=== PATIENT | male | born 1990 | race Caucasian/White ===

== ENCOUNTER 2017-07-31 15:24 | Inpatient (IN) | payer OTHER ==
[2017-07-31 17:04] LABS: Hematocrit 44 % (42-52); Mean Corpuscular HGB Conc 34 g/dl (31-36); Mean Corpuscular Hemoglobin 32 pg (27-31); Mean Corpuscular Volume 96 fL (80-94); Mean Platelet Volume 8 um3 (7.4-10.4); Red Blood Count 4.64 10^6/ul (4.0-5.4); Red Cell Distribution Width 14 % (10.5-15); White Blood Count 7.4 10^3/ul (3.5-10.8)
[2017-07-31 17:18] LABS: ALT 11 U/L (7-52); AST 15 U/L (13-39); Albumin 4.4 g/dL (3.2-5.2); Alkaline Phosphatase 53 U/L (34-104); Anion Gap 3 mmol/L (2-11); Blood Urea Nitrogen 9 mg/dL (6-24); CO2 Carbon Dioxide 33 mmol/L (22-32); Calcium 9.3 mg/dL (8.6-10.3); Chloride 103 mmol/L (101-111); EGFR African American 142.9 (>60); EGFR Non-African American 111.1 (>60); Globulin 2.3 g/dL (2-4); Glucose 79 mg/dL (70-100); Potassium 3.9 mmol/L (3.5-5.0); Sodium 139 mmol/L (133-145); Total Protein 6.7 g/dL (6.4-8.9)
[2017-07-31 17:49] LABS: Acetaminophen < 15 mcg/mL; Alcohol < 10 mg/dL (<10); Salicylate < 2.50 mg/dL (<30)
[2017-07-31 18:04] LABS: TSH (Thyroid Stimulating Horm) 2.27 mcIU/mL (0.34-5.60)
[2017-08-01] MEDS ORDERED: Al Hydrox/Mg Hydrox/Simet LIQ* 30 ML UDC PO PRN (01:12)
[2017-08-01] MEDS ORDERED: Acetaminophen TAB* 325 MG PO PRN (01:12)
[2017-08-01] MEDS ORDERED: chlorproMAZINE TAB* 50 MG PO PRN (01:12)
[2017-08-01] MEDS ORDERED: EPINEPHrine PEN ADULT(NF) 0.3 MG SYRINGE IM PRN (03:15)
[2017-08-01] MEDS: ValACYclovir (*) 1 GM TAB PO SCH (07:58)
[2017-08-01] MEDS: Vitamin THERAPEUTIC TAB PO SCH (07:58)
--- NOTE | 2017-08-01 08:47 | ED ---
Stuart Hernandez Angela, scribed for Dangelo Astudillo MD on 07/31/17 at 1717 . Psychiatric Complaint - HPI Summary HPI Summary: This pt is a 27 y/o male presenting to [facility] c/o intermittent paranoia since this past summer. Pt reports that his partner and psychiatrist (Nikki Goss) have recommended him to come to the ED. Pt denies SI or HI. There are no aggravating or alleviating factors. PMHx of paranoia, anxiety, depression. - History Of Current Complaint Chief Complaint: EDMentalHealth Time Seen by Provider: 07/31/17 16:25 Hx Obtained From: Patient Onset/Duration: Lasting Weeks, Still Present Timing: Weeks Character: Depressed, Anxious Aggravating Factor(s): Nothing Alleviating Factor(s): Nothing Has Suicidal: Denies: Thoughts, With A Plan Has Homicidal: Denies: Thoughts, With A Plan - Allergies/Home Medications Allergies/Adverse Reactions: Allergies Allergy/AdvReac Type Severity Reaction Status Date / Time Amoxicillin Allergy Hives Verified 07/31/17 15:34 Banana Allergy Unknown Verified 07/31/17 15:34 Reaction Details Marlborough Oil [From Marlborough] Allergy Unknown Verified 07/31/17 15:34 Reaction Details Diphenhydramine Allergy Altered Verified 07/31/17 15:34 [From Benadryl] Mental Status Hydroxyzine Allergy Altered Verified 07/31/17 15:34 Mental Status Kiwi Extract Allergy Unknown Verified 07/31/17 15:34 Reaction Details Latex Allergy Unknown Verified 07/31/17 15:34 Reaction Details Wheat Extract Allergy Unknown Verified 07/31/17 15:34 Reaction Details PMH/Surg Hx/FS Hx/Imm Hx Endocrine/Hematology History: Denies: Hx Diabetes Cardiovascular History: Denies: Hx Hypertension Psychiatric History: Reports: Hx Anxiety, Hx Depression, Other Psychiatric Issues/Disorders - paranoia Infectious Disease History: No Infectious Disease History: Denies: Traveled Outside the [place] in Last 30 Days - Family History Known Family History: Negative: Cardiac Disease, Hypertension - Social History Alcohol Use: Rare Substance Use Type: Reports: None Smoking Status (MU): Never Smoked Tobacco Review of Systems Negative: Fever, Chills Eyes: Negative ENT: Negative Cardiovascular: Negative Respiratory: Negative Gastrointestinal: Negative Psychological: Other - paranoia Positive: Anxious, Depressed. Negative: Other - SI or HI All Other Systems Reviewed And Are Negative: Yes Physical Exam - Summary Physical Exam Summary: VITAL SIGNS: Reviewed. GENERAL: Patient is a well-developed and nourished male who is lying comfortable in the stretcher. Patient is not in any acute respiratory distress. HEAD AND FACE: No signs of trauma. No ecchymosis, hematomas or skull depressions. No sinus tenderness. EYES: PERRLA, EOMI x 2, No injected conjunctiva, no nystagmus. EARS: Hearing grossly intact. Ear canals and tympanic membranes are within normal limits. MOUTH: Oropharynx within normal limits. NECK: Supple, trachea is midline, no adenopathy, no JVD, no carotid bruit, no c- spine tenderness, neck with full ROM. CHEST: Symmetric, no tenderness at palpation LUNGS: Clear to auscultation bilaterally. No wheezing or crackles. CVS: Regular rate and rhythm, S1 and S2 present, no murmurs or gallops appreciated. ABDOMEN: Soft, non-tender. No signs of distention. No rebound no guarding, and no masses palpated. Bowel sounds are normal. EXTREMITIES: FROM in all major joints, no edema, no cyanosis or clubbing. NEURO: Alert and oriented x 3. No acute neurological deficits. Speech is normal and follows commands. SKIN: Dry and warm PSYCH: Depressed, quiet, and denies any suicidal thoughts or plan. No homicidal thoughts or plan. No signs of psychosis or pressure speech. No tangential speech. Triage Information Reviewed: Yes Vital Signs On Initial Exam: Initial Vitals Temp Pulse Resp BP Pulse Ox 98 F 67 18 109/69 100 07/31/17 15:30 07/31/17 15:30 07/31/17 15:30 07/31/17 15:30 07/31/17 15:30 Vital Signs Reviewed: Yes - Rossy Coma Scale Coma Scale Total: 15 Diagnostics - Vital Signs Vital Signs Temp Pulse Resp BP Pulse Ox 07/31/17 15:30 98 F 67 18 109/69 100 - Laboratory Lab Results: Lab Results 07/31/17 Range/Units 16:52 WBC 7.4 (3.5-10.8) 10^3/ul RBC 4.64 (4.0-5.4) 10^6/ul Hgb 15.0 (14.0-18.0) g/dl Hct 44 (42-52) % MCV 96 H (80-94) fL MCH 32 H (27-31) pg MCHC 34 (31-36) g/dl RDW 14 (10.5-15) % Plt Count 240 (150-450) 10^3/ul MPV 8 (7.4-10.4) um3 Neut % (Auto) 67.2 (38-83) % Lymph % (Auto) 22.9 L (25-47) % [place] % (Auto) 7.7 (1-9) % Eos % (Auto) 1.7 (0-6) % Baso % (Auto) 0.5 (0-2) % Absolute Neuts (auto) 5.0 (1.5-7.7) 10^3/ul Absolute Lymphs (auto) 1.7 (1.0-4.8) 10^3/ul Absolute Monos (auto) 0.6 (0-0.8) 10^3/ul Absolute Eos (auto) 0.1 (0-0.6) 10^3/ul Absolute Basos (auto) 0 (0-0.2) 10^3/ul Absolute Nucleated RBC 0 10^3/ul Nucleated RBC % 0 Result Diagrams: 07/31/17 16:52 07/31/17 16:52 Lab Statement: Any lab studies that have been ordered have been reviewed, and results considered in the medical decision making process. Course/Dx - Course Assessment/Plan: This pt is a 27 y/o male presenting to [facility] c/o intermittent paranoia since this past summer. Pt reports that his partner and psychiatrist ( Nikki Goss) have recommended him to come to the ED. Pt denies SI or HI. There are no aggravating or alleviating factors. PMHx of paranoia, anxiety, depression. All blood work within normal limits. Pt is medically cleared. He is waiting for MHE. Pt will be signed out to next ER attending to follow up on MHE recommendations. - Differential Dx/Clinical Impression Provider Diagnosis: Paranoia Discharge - Discharge Plan Condition: Stable Disposition: OTHER Discharge Disposition Comment: signed out to next ER attending, pending dispo, awaiting MHE. Referrals: No Primary Care Phys,NOPCP [Primary Care Provider] - The documentation as recorded by the Stuart watkins Angela accurately reflects the service I personally performed and the decisions made by me, Dangelo Astudillo MD.
--- NOTE | 2017-08-01 10:07 | RAD ---
Indication: Paranoia, evaluate for organic brain disease. CT of the brain was performed without IV contrast. No prior study is available for comparison. Ventricular structures are midline. No midline shift is noted. The extra-axial spaces are unremarkable. There is no evidence of intracranial mass or hemorrhage. No other high or low density lesions are identified. Mastoid air cells and paranasal sinuses are otherwise unremarkable. IMPRESSION: No intracranial mass or hemorrhage is noted.
[2017-08-01] MEDS ORDERED: EPINEPHrine AMP 1 MG/ML IM PRN ×2 (11:15→12:32)
--- NOTE | 2017-08-01 11:39 | PN ---
[facility]: Group Therapy Note - Service Type Service Type: [id number] Group Psychotherapy - Cognitive Behavioral Group Therapy ( CBT):Patient was attentive and participatory in CBT programming this morning, and remained in good behavioral control. Patient expressed positive insights regarding relevant treatment interventions and goals.
[2017-08-01] MEDS: LORazepam TAB(*) 1 MG PO PRN ×2 (13:04→21:16)
[2017-08-01] MEDS: FLUoxetine CAP* 20 MG PO SCH (16:21)
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
[2017-08-01] MEDS: clonazePAM TAB(*) 0.5 MG PO SCH (20:47)
[2017-08-02] MEDS: Vitamin THERAPEUTIC TAB PO SCH ×2 (08:33→08:34)
[2017-08-02] MEDS: clonazePAM TAB(*) 0.5 MG PO SCH ×2 (08:33→20:16)
[2017-08-02] MEDS: FLUoxetine CAP* 20 MG PO SCH (08:33)
[2017-08-02] MEDS: ValACYclovir (*) 1 GM TAB PO SCH (08:35)
[2017-08-02 10:24] LABS: Urine Bacteria Absent (Absent); Urine Bilirubin Negative (Negative); Urine Glucose Negative (Negative); Urine Nitrite Negative (Negative)
[2017-08-02 10:31] LABS: Benzodiazepine Urine Screen None Detected (None Detect)
[2017-08-02] MEDS: LORazepam TAB(*) 1 MG PO PRN (12:06)
--- NOTE | 2017-08-02 12:58 | PN ---
Subjective - Subjective Service Type: 07921 Hosp care 15 min low complexity Subjective: Patient less paranoid and no overt delusions noted. Seems to have better perspective on his issues. "Yesterday I saw a book in on the shelf in the day area that said [employer]. 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 Today I think about that situation and I see that that's not true at all." The patient notes that his affect worsens anytime his partner arrives on the unit for a visit. He continues to deny SI or HI and expresses his desire to go home, but he is OK waiting until Sunday. When questioned about the abnormal urinalysis results he does indicate that he' s had mild urinary discomfort indicative of UTI. Objective - Appearance Appearance: Well Developed/Nourished Dysmorphic Features: No Hygiene: Normal Grooming: Well Kept - Behavior Psychomotor Activities: Normal Exhibits Abnormal Movement: No - Attitude and Relatedness Attitude and Relatedness: Cooperative Eye Contact: Good - Speech Quality: Unpressured Latencies: Normal Quantity: Appropriate - Mood Patient's Decription of Mood: "Good" - Affect Observed Affect: Good Affect Consistent with: Euthymia - Thought Process Patient's Thought Process: Coherent Thought Content: No Passive Wish, No Suicidal Planning, No Homicidal Ideation, No Paranoid Ideation - Sensorium Experiencing Hallucinations: No, Sensorium is Clear Type of Hallucinations: Visual: No, Auditory: No, Command: No - Level of Consciousness Level of Consciousness: Alert Orientation: Yes Intact, Yes Orientated to Time, Yes Orientated to Place, Yes Orientated to Person - Impulse Control Impulse Control: Tenuous - Insight and Judgement Insight and Judgement: Fair - Group Participation Particating in Group Activities: Yes - Medication Management Medication Management Adherence: Yes Assessment - Assessment Merits Inpatient Hospitalization: For Immediate Safety, For Stabilization 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 single, white, unemployed [id number] transgender with a history of numerous psychiatric disorders including PTSD, autism spectrum DO, OCD, ADHD and dysthymia, who arrived on a voluntary basis having been brought by his partner from his outpatient psychiatric nurse practitioner's office where he had complained of psychotic symptoms and inability to maintain his own safety in the community. Plan - Plan Treatment Plan: Name: BRANDON SANCHEZ Birthdate: 1990 [id number] We have added quetiapine 50mg PO qhs to his outpatient regimen of fluoxatine 60mg PO qday and clonazepam 0.5mg PO BID. Family meeting with partner on Sunday , August 02, followed by probably discharge to home. Continued Medication Management: Start Medication Medications: Current Medications Acetaminophen (Tylenol Tab*) 650 mg PO Q4H PRN PRN Reason: PAIN or TEMP > 101 F Al Hydrox/Mg Hydrox/Simethicone (Maalox Plus*) 30 ml PO Q4H PRN PRN Reason: INDIGESTION Chlorpromazine HCl (Thorazine Tab*) 50 mg PO Q6H PRN PRN Reason: AGITATION Ciprofloxacin (Cipro Tab*) 500 mg PO BID [facility] Clonazepam (Klonopin Tab(*)) 0.5 mg PO BID [facility] Last Admin: 08/02/17 08:33 Dose: 0.5 mg Epinephrine HCl (Epinephrine Amp 1 Mg/Ml*) 0.3 mg IM ONCE PRN PRN Reason: ANAPHYLAXIS Fluoxetine HCl (Prozac Cap*) 60 mg PO DAILY [facility] Last Admin: 08/02/17 08:33 Dose: 60 mg Lorazepam (Ativan Tab(*)) 1 mg PO TID PRN PRN Reason: ANXIETY Last Admin: 08/02/17 12:06 Dose: 1 mg Multivitamins (Theragran Tab*) 1 tab PO DAILY [facility] Last Admin: 08/02/17 08:34 Dose: Not Given Quetiapine Fumarate (Seroquel Tab*) 50 mg PO BEDTIME [facility] Valacyclovir HCl (Valtrex 1 Gm(*)) 1 gm PO DAILY [facility] Last Admin: 08/02/17 08:35 Dose: 1 gm - Discharge Plan Discharge Plan: Inpatient Hospitalization Lab Results - Lab Results Lab Results: 08/02/17 08/02/17 10:00 10:00 Urine Color Yellow Urine Appearance Cloudy Urine pH 6.0 Ur Specific [place] 1.015 Urine Protein Negative Urine Ketones Negative Urine Blood Negative Urine Nitrate Negative Urine Bilirubin Negative Urine Urobilinogen Negative Ur Leukocyte Esterase 3+ H Urine WBC (Auto) 2+(11-20/hpf) H Urine RBC (Auto) 1+(3-5/hpf) H Ur Squamous Epith Cells Present H Urine Bacteria Absent Hyaline Casts Present H Urine Glucose Negative Urine Ascorbic Acid * H Urine Opiates Screen None detected Ur Barbiturates Screen None detected Ur Phencyclidine Scrn None detected Ur Amphetamines Screen None detected U Benzodiazepines Scrn None detected Urine Cocaine Screen None detected U Cannabinoids Screen Presumptive positive H
[2017-08-02] MEDS: Nicotine Inhaler* 10 MG AMP INH PRN ×2 (13:49→16:46)
[2017-08-02] MEDS: Ciprofloxacin TAB* 500 MG PO SCH ×2 (13:49→20:15)
[2017-08-02] MEDS ORDERED: Mouth Piece, Nicotine* 1 EACH CARTRIDGE INH ONE (14:00)
[2017-08-02] MEDS: QUEtiapine TAB* 25 MG PO SCH (20:14)
[2017-08-03] MEDS: clonazePAM TAB(*) 0.5 MG PO SCH ×2 (09:03→20:21)
[2017-08-03] MEDS: ValACYclovir (*) 1 GM TAB PO SCH (09:03)
[2017-08-03] MEDS: Ciprofloxacin TAB* 500 MG PO SCH ×2 (09:03→20:21)
[2017-08-03] MEDS: FLUoxetine CAP* 20 MG PO SCH (09:04)
[2017-08-03] MEDS: Vitamin THERAPEUTIC TAB PO SCH (09:19)
[2017-08-03] MEDS: Nicotine Inhaler* 10 MG AMP INH PRN (13:48)
[2017-08-03] MEDS: LORazepam TAB(*) 1 MG PO PRN ×2 (13:48→18:26)
--- NOTE | 2017-08-03 14:50 | PN ---
Subjective - Subjective Subjective: Yon reports continuing improvement in presenting symptoms. He is no longer appearing delusional and he is able to state that his fears the government was monitoring his phone, Nazis were coming, and mandaeism preoccupations were not reality-based. He denies side effects from prescribed medication including newly started Seroquel. HE looks forward to family meeting/discharge on Sunday. Objective - Appearance Appearance: Healthy Appearing Dysmorphic Features: No Hygiene: Normal Grooming: Well Kept - Behavior Psychomotor Activities: Normal Exhibits Abnormal Movement: No - Attitude and Relatedness Attitude and Relatedness: Cooperative Eye Contact: Fair - Speech Quality: Unpressured Latencies: Normal Quantity: Appropriate - Mood Patient's Decription of Mood: better - Affect Observed Affect: Fair Affect Consistent with: Euthymia - Thought Process Patient's Thought Process: Coherent, Goal Directed Thought Content: No Passive Wish, No Suicidal Planning, No Homicidal Ideation, No Paranoid Ideation - Sensorium Experiencing Hallucinations: No, Sensorium is Clear - Level of Consciousness Level of Consciousness: Alert Orientation: Yes Intact - Impulse Control Impulse Control: Intact - Insight and Judgement Insight and Judgement: Fair - Group Participation Particating in Group Activities: Yes - Medication Management Medication Management Adherence: Yes Assessment - Assessment Merits Inpatient Hospitalization: Consolidate Improvements, For Discharge Planning 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 He needs continued admission for consolidation. Plan - Plan Treatment Plan: Name: BRANDON SANCHEZ Birthdate: 1990 [id number] Continued Medication Management: Continue Outpt Medication Medications: Current Medications Acetaminophen (Tylenol Tab*) 650 mg PO Q4H PRN PRN Reason: PAIN or TEMP > 101 F Al Hydrox/Mg Hydrox/Simethicone (Maalox Plus*) 30 ml PO Q4H PRN PRN Reason: INDIGESTION Chlorpromazine HCl (Thorazine Tab*) 50 mg PO Q6H PRN PRN Reason: AGITATION Ciprofloxacin (Cipro Tab*) 500 mg PO BID COUNTS INCLUDE 234 BEDS AT THE [facility] Last Admin: 08/03/17 09:03 Dose: 500 mg Clonazepam (Klonopin Tab(*)) 0.5 mg PO BID COUNTS INCLUDE 234 BEDS AT THE [facility] Last Admin: 08/03/17 09:03 Dose: 0.5 mg Epinephrine HCl (Epinephrine Amp 1 Mg/Ml*) 0.3 mg IM ONCE PRN PRN Reason: ANAPHYLAXIS Fluoxetine HCl (Prozac Cap*) 60 mg PO DAILY COUNTS INCLUDE 234 BEDS AT THE [facility] Last Admin: 08/03/17 09:04 Dose: 60 mg Lorazepam (Ativan Tab(*)) 1 mg PO TID PRN PRN Reason: ANXIETY Last Admin: 08/03/17 13:48 Dose: 1 mg Multivitamins (Theragran Tab*) 1 tab PO DAILY COUNTS INCLUDE 234 BEDS AT THE [facility] Last Admin: 08/03/17 09:19 Dose: Not Given Nicotine (Nicotine Inhaler*) 10 mg INH Q2H PRN PRN Reason: CRAVINGS Last Admin: 08/03/17 13:48 Dose: 10 mg Quetiapine Fumarate (Seroquel Tab*) 50 mg PO BEDTIME COUNTS INCLUDE 234 BEDS AT THE [facility] Last Admin: 08/02/17 20:14 Dose: 50 mg Valacyclovir HCl (Valtrex 1 Gm(*)) 1 gm PO DAILY COUNTS INCLUDE 234 BEDS AT THE [facility] Last Admin: 08/03/17 09:03 Dose: 1 gm - Discharge Plan Discharge Plan: Outpatient Follow Up Outpatient Program: [facility]
[2017-08-03] MEDS: QUEtiapine TAB* 25 MG PO SCH (20:20)
[2017-08-04] MEDS: Vitamin THERAPEUTIC TAB PO SCH ×2 (08:07→08:08)
[2017-08-04] MEDS: Ciprofloxacin TAB* 500 MG PO SCH ×2 (08:07→20:20)
[2017-08-04] MEDS: clonazePAM TAB(*) 0.5 MG PO SCH ×2 (08:07→20:20)
[2017-08-04] MEDS: FLUoxetine CAP* 20 MG PO SCH (08:07)
[2017-08-04] MEDS: ValACYclovir (*) 1 GM TAB PO SCH (08:07)
[2017-08-04 08:23] LABS: HDL Cholesterol 47.5 mg/dL
[2017-08-04] MEDS: LORazepam TAB(*) 1 MG PO PRN (11:17)
[2017-08-04] MEDS ORDERED: Mouth Piece, Nicotine* 1 EACH CARTRIDGE ONE (11:24)
[2017-08-04] MEDS: Nicotine Inhaler* 10 MG AMP INH PRN ×3 (11:25→17:20)
--- NOTE | 2017-08-04 14:09 | PN ---
Subjective - Subjective Service Type: 25908 Hosp care 15 min low complexity Subjective: The patient is in good spirits and feels like the quetiapine is tolerable with no side effects. He denies paranoia or overt anxiety, although he admits that certain peers on the unit make him very uncomfortable. I spoke with his partner , Alek Spears ([phone]), who expressed that today's visit was the best Tod has seemed to him, but he's concerned that perhaps the prn lorazepam is what's stabilizing him, setting him up for setbacks if he goes home without this medication. Tod denies SI or HI and has been very interactive on the unit. Objective - Appearance Appearance: Well Developed/Nourished Dysmorphic Features: No Hygiene: Normal Grooming: Fairly Well Kept - Behavior Psychomotor Activities: Normal Exhibits Abnormal Movement: No - Attitude and Relatedness Attitude and Relatedness: Cooperative Eye Contact: Fair - Speech Quality: Unpressured Latencies: Normal Quantity: Appropriate - Mood Patient's Decription of Mood: "Good" - Affect Observed Affect: Good Affect Consistent with: Euthymia - Thought Process Patient's Thought Process: Coherent Thought Content: No Passive Wish, No Suicidal Planning, No Homicidal Ideation, No Paranoid Ideation - Sensorium Experiencing Hallucinations: No, Sensorium is Clear Type of Hallucinations: Visual: No, Auditory: No, Command: No - Level of Consciousness Level of Consciousness: Alert Orientation: Yes Intact, Yes Orientated to Time, Yes Orientated to Place, Yes Orientated to Person - Impulse Control Impulse Control: Poor - Insight and Judgement Insight and Judgement: Impaired - Group Participation Particating in Group Activities: Yes - Medication Management Medication Management Adherence: Yes Assessment - Assessment Merits Inpatient Hospitalization: Consolidate Improvements, Pending Safe DC Plan 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 single, white, unemployed [id number] transgender with a history of numerous psychiatric disorders including PTSD, autism spectrum DO, OCD, ADHD and dysthymia, who arrived on a voluntary basis having been brought by his partner from his outpatient psychiatric nurse practitioner's office where he had complained of psychotic symptoms and inability to maintain his own safety in the community. Plan - Plan Treatment Plan: Name: TOD SANCHEZ Birthdate: 1990 [id number] We have added quetiapine 50mg PO qhs to his outpatient regimen of fluoxatine 60mg PO qday and clonazepam 0.5mg PO BID. We will decrease lorazepam to 0.5mg q6h as prn for anxiety in advance of discontinuing this. Family meeting with partner on August 02 at 11:00, followed by probably discharge to home. Continued Medication Management: Start Medication Medications: Current Medications Acetaminophen (Tylenol Tab*) 650 mg PO Q4H PRN PRN Reason: PAIN or TEMP > 101 F Al Hydrox/Mg Hydrox/Simethicone (Maalox Plus*) 30 ml PO Q4H PRN PRN Reason: INDIGESTION Chlorpromazine HCl (Thorazine Tab*) 50 mg PO Q6H PRN PRN Reason: AGITATION Ciprofloxacin (Cipro Tab*) 500 mg PO BID [facility] Last Admin: 08/04/17 08:07 Dose: 500 mg Clonazepam (Klonopin Tab(*)) 0.5 mg PO BID [facility] Last Admin: 08/04/17 08:07 Dose: 0.5 mg Epinephrine HCl (Epinephrine Amp 1 Mg/Ml*) 0.3 mg IM ONCE PRN PRN Reason: ANAPHYLAXIS Fluoxetine HCl (Prozac Cap*) 60 mg PO DAILY [facility] Last Admin: 08/04/17 08:07 Dose: 60 mg Lorazepam (Ativan Tab(*)) 0.5 mg PO TID PRN PRN Reason: ANXIETY Multivitamins (Theragran Tab*) 1 tab PO DAILY [facility] Last Admin: 08/04/17 08:08 Dose: Not Given Nicotine (Nicotine Inhaler*) 10 mg INH Q2H PRN PRN Reason: CRAVINGS Last Admin: 08/04/17 13:38 Dose: 10 mg Quetiapine Fumarate (Seroquel Tab*) 50 mg PO BEDTIME [facility] Last Admin: 08/03/17 20:20 Dose: 50 mg Valacyclovir HCl (Valtrex 1 Gm(*)) 1 gm PO DAILY [facility] Last Admin: 08/04/17 08:07 Dose: 1 gm - Discharge Plan Discharge Plan: Outpatient Follow Up Outpatient Program: Private Clinician(s) Lab Results - Lab Results Lab Results: 08/02/17 08/02/17 08/04/17 10:00 10:00 07:49 Hemoglobin A1c Triglycerides 74 Cholesterol 187 LDL Cholesterol 125 HDL Cholesterol 47.5 Urine Color Yellow Urine Appearance Cloudy Urine pH 6.0 Ur Specific [place] 1.015 Urine Protein Negative Urine Ketones Negative Urine Blood Negative Urine Nitrate Negative Urine Bilirubin Negative Urine Urobilinogen Negative Ur Leukocyte Esterase 3+ H Urine WBC (Auto) 2+(11-20/hpf) H Urine RBC (Auto) 1+(3-5/hpf) H Ur Squamous Epith Cells Present H Urine Bacteria Absent Hyaline Casts Present H Urine Glucose Negative Urine Ascorbic Acid * H Urine Opiates Screen None detected Ur Barbiturates Screen None detected Ur Phencyclidine Scrn None detected Ur Amphetamines Screen None detected U Benzodiazepines Scrn None detected Urine Cocaine Screen None detected U Cannabinoids Screen Presumptive positive H 08/04/17 07:49 Hemoglobin A1c 4.5 Triglycerides Cholesterol LDL Cholesterol HDL Cholesterol Urine Color Urine Appearance Urine pH Ur Specific [place] Urine Protein Urine Ketones Urine Blood Urine Nitrate Urine Bilirubin Urine Urobilinogen Ur Leukocyte Esterase Urine WBC (Auto) Urine RBC (Auto) Ur Squamous Epith Cells Urine Bacteria Hyaline Casts Urine Glucose Urine Ascorbic Acid Urine Opiates Screen Ur Barbiturates Screen Ur Phencyclidine Scrn Ur Amphetamines Screen U Benzodiazepines Scrn Urine Cocaine Screen U Cannabinoids Screen
[2017-08-04] MEDS: LORazepam TAB(*) 0.5 MG PO PRN ×2 (15:35→20:58)
[2017-08-04] MEDS: QUEtiapine TAB* 25 MG PO SCH (20:19)
[2017-08-05] MEDS: ValACYclovir (*) 1 GM TAB PO SCH (09:05)
[2017-08-05] MEDS: clonazePAM TAB(*) 0.5 MG PO SCH ×2 (09:05→19:54)
[2017-08-05] MEDS: FLUoxetine CAP* 20 MG PO SCH (09:05)
[2017-08-05] MEDS: Ciprofloxacin TAB* 500 MG PO SCH ×2 (09:05→19:54)
[2017-08-05] MEDS: Vitamin THERAPEUTIC TAB PO SCH ×2 (09:05→09:16)
[2017-08-05] MEDS: Nicotine Inhaler* 10 MG AMP INH PRN ×2 (09:07→14:06)
[2017-08-05] MEDS: LORazepam TAB(*) 0.5 MG PO PRN (11:23)
--- NOTE | 2017-08-05 12:37 | PN ---
Progress Note - Progress Note Date of Service: 08/05/17 Note: I attempted to meet with Tod this afternoon to assess his mental status and also to examine his hand, which I understand he punctured while sitting in the day room last evening. Unfortunately, he refuses consent for the meeting, stating that he wants his partner present to function as his "advocate." Staff accounts describe his partner, Alek, as highly reactive and inappropriate during her visit last night and I understand that she is banned from the unit, pending administrative review from unit leadership tomorrow morning. My understanding is that Dr. Del Cid, the evening hospitalist, was contacted and did not feel that prophylactic antiviral treatment, or further workup, was warranted. For a second opinion I contacted current on-call hospitalist, Dr. Aparna Cox, who did not feel that the situation warranted a full consult but would send the nursing supervisor heading over to evaluate the situation. Additionally, I was able to talk to the patient's partner, Alek, on the phone and he denies acting inappropriately yesterday. He would like his visitation privileges resumed, however, staff indicates that his behavior was extremely disruptive to other patients on the unit and that his reappearance would be counter-therapeutic to the milieu. This clinician will discuss the matter tomorrow with the full treatment team, including unit administrative assistant coordinator, Smith Roman, to determine how best to proceed. Lab Results - Lab Results Lab Results: 08/04/17 08/04/17 07:49 07:49 Hemoglobin A1c 4.5 Triglycerides 74 Cholesterol 187 LDL Cholesterol 125 HDL Cholesterol 47.5
--- NOTE | 2017-08-05 13:24 | PN ---
Hospitalist Progress Note HOSPITALIST ADDENDUM Called by Dr. Sy for patient with alleged needle stick exposure last night while sitting on a chair. I requested Nursing supervisor microbiology technologists assistance on this issue. He reports security disassembled the aforementioned chair and did not find any needles. Patient is concerned with the possibility of kalpesh something despite no evidence of needle stick accident. D/w Nursing supervisor microbiology technologists - recommend checking serologies (HIV, Hep B and C) and providing post-exposure prophylaxis per protocol, until situation can be further clarified.
[2017-08-05] MEDS ORDERED: Tetanus-Diptheria Toxoids* 0.5 ML SYRINGE IM ONE (13:30)
[2017-08-05] MEDS: QUEtiapine TAB* 25 MG PO SCH (19:54)
[2017-08-05 21:09] LABS: Rapid HIV INT CONT QC Line Present
[2017-08-05 21:10] LABS: Rapid HIV Kit Lot# H046007
[2017-08-06] MEDS: Vitamin THERAPEUTIC TAB PO SCH (08:14)
[2017-08-06] MEDS: FLUoxetine CAP* 20 MG PO SCH (08:15)
[2017-08-06] MEDS: Ciprofloxacin TAB* 500 MG PO SCH (08:16)
[2017-08-06] MEDS: ValACYclovir (*) 1 GM TAB PO SCH (08:16)
[2017-08-06] MEDS: LORazepam TAB(*) 0.5 MG PO PRN (08:17)
[2017-08-06] MEDS: Nicotine Inhaler* 10 MG AMP INH PRN (08:20)
[2017-08-06 08:37] VITALS: BP 121/66
[2017-08-06] MEDS: clonazePAM TAB(*) 0.5 MG PO SCH (09:56)
--- NOTE | 2017-08-06 14:06 | DCNOTE ---
Subjective - Subjective Service Types: 88641 Hosp DC Day Mgmt complex over 30 min Discharge Date: 08/06/17 Subjective: Patient denies suicidality or paranoia. Partner, Alek Mtez, willing to take him home after productive family meeting today. Objective - Appearance Appearance: Well Developed/Nourished Dysmorphic Features: No Hygiene: Normal Grooming: Well Kept - Behavior Psychomotor Activities: Normal Exhibits Abnormal Movement: No - Attitude and Relatedness Attitude and Relatedness: Cooperative Eye Contact: Fair - Speech Quality: Unpressured Latencies: Normal Quantity: Appropriate - Mood Patient's Decription of Mood: "Good" - Affect Observed Affect: Good Affect Consistent with: Euthymia - Thought Process Patient's Thought Process: Coherent Thought Content: No Passive Wish, No Suicidal Planning, No Homicidal Ideation, No Paranoid Ideation - Sensorium Experiencing Hallucinations: No, Sensorium is Clear Type of Hallucinations: Visual: No, Auditory: No, Command: No - Level of Consciousness Level of Consciousness: Alert Orientation: Yes Intact, Yes Orientated to Time, Yes Orientated to Place, Yes Orientated to Person - Impulse Control Impulse Control: Intact - Insight and Judgement Insight and Judgement: Good - Group Participation Particating in Group Activities: Yes - Medication Management Medication Management Adherence: Yes DC Assessment - Assessment Clinical Impression: 27 y.o. single, white, unemployed [id number] transgender with a history of numerous psychiatric disorders including PTSD, autism spectrum DO, OCD, ADHD and dysthymia, who arrived on a voluntary basis having been brought by his partner from his outpatient psychiatric nurse practitioner's office where he had complained of psychotic symptoms and inability to maintain his own safety in the community. 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 Discharge Planning - Discharge Planning Discharge Plan: Outpatient Follow Up Outpatient Program: [facility] Medications: Current Medications Acetaminophen (Tylenol Tab*) 650 mg PO Q4H PRN PRN Reason: PAIN or TEMP > 101 F Al Hydrox/Mg Hydrox/Simethicone (Maalox Plus*) 30 ml PO Q4H PRN PRN Reason: INDIGESTION Chlorpromazine HCl (Thorazine Tab*) 50 mg PO Q6H PRN PRN Reason: AGITATION Ciprofloxacin (Cipro Tab*) 500 mg PO BID [facility] Last Admin: 08/06/17 08:16 Dose: 500 mg Clonazepam (Klonopin Tab(*)) 0.5 mg PO BID [facility] Last Admin: 08/06/17 09:56 Dose: 0.5 mg Epinephrine HCl (Epinephrine Amp 1 Mg/Ml*) 0.3 mg IM ONCE PRN PRN Reason: ANAPHYLAXIS Fluoxetine HCl (Prozac Cap*) 60 mg PO DAILY [facility] Last Admin: 08/06/17 08:15 Dose: 60 mg Lorazepam (Ativan Tab(*)) 0.5 mg PO TID PRN PRN Reason: ANXIETY Last Admin: 08/06/17 08:17 Dose: 0.5 mg Multivitamins (Theragran Tab*) 1 tab PO DAILY [facility] Last Admin: 08/06/17 08:14 Dose: Not Given Nicotine (Nicotine Inhaler*) 10 mg INH Q2H PRN PRN Reason: CRAVINGS Last Admin: 08/06/17 08:20 Dose: 10 mg Quetiapine Fumarate (Seroquel Tab*) 50 mg PO BEDTIME [facility] Last Admin: 08/05/17 19:54 Dose: 50 mg Valacyclovir HCl (Valtrex 1 Gm(*)) 1 gm PO DAILY [facility] Last Admin: 08/06/17 08:16 Dose: 1 gm Discharge Planning: Prescriptions provided for discharge [] Yes [] No Follow up care details as per social work arrangements. Patient response to discharge plan: [] eager for discharge [] agreeable with discharge plan [] ambivalent about discharge [] disagrees with discharge today Lab Results - Lab Results Lab Results: 08/04/17 08/04/17 08/05/17 07:49 07:49 07:49 Hemoglobin A1c 4.5 Triglycerides 74 Cholesterol 187 LDL Cholesterol 125 HDL Cholesterol 47.5 Hepatitis B Antibody Reactive Hep Bs Antigen Nonreactive Hep Bs Antibody, Quant 742.72 Hepatitis C Antibody Nonreactive HIV 1&2 Antibody Rapid Nonreactive
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
== END 2017-08-06 14:22 | disposition home or self-care (01) | DRG 751 ==
LOC: ED 15:24 → BSU 08-01 02:24
PROVIDERS: ADMIT Psychiatry & Neurology Psychiatry; ATTEND Psychiatry & Neurology Psychiatry
DX: F29 Unspecified psychosis not due to a substance or known physiological condition (principal); F33.3 Major depressive disorder, recurrent, severe with psychotic symptoms; N39.0 Urinary tract infection, site not specified; F19.959 Other psychoactive substance use, unspecified with psychoactive substance-induced psychotic disorder, unspecified; F12.10 Cannabis abuse, uncomplicated; B95.1 Streptococcus, group B, as the cause of diseases classified elsewhere; F17.210 Nicotine dependence, cigarettes, uncomplicated; F43.10 Post-traumatic stress disorder, unspecified; F84.0 Autistic disorder; F42.9 Obsessive-compulsive disorder, unspecified; F90.9 Attention-deficit hyperactivity disorder, unspecified type; F34.1 Dysthymic disorder; Z79.890 Hormone replacement therapy; Z79.899 Other long term (current) drug therapy; Z91.018 Allergy to other foods; Z81.1 Family history of alcohol abuse and dependence; Z81.8 Family history of other mental and behavioral disorders; S61.449A Puncture wound with foreign body of unspecified hand, initial encounter; W26.8XXA Contact with other sharp object(s), not elsewhere classified, initial encounter; Y92.230 Patient room in hospital as the place of occurrence of the external cause
CPT/HCPCS: 36415; 70450; 80053; 80061; 80307; 80320; 80329; 81003; 81015; 83036; 84443; 85025; 86618; 86703; 86706; 86803; 87077; 87086; 87340; 90853; 99222; 99231; 99238; A9270-GY; G0480; J0171

== ENCOUNTER 2018-01-27 14:42 | Emergency (ER) | payer MEDICAID, OTHER ==
[2018-01-27 16:11] LABS: ABS Basophils 0.1 10^3/ul (0-0.2); ABS Eosinophils 0.1 10^3/ul (0-0.6); ABS Lymphocytes 1.7 10^3/ul (1.0-4.8); ABS Monocytes 0.6 10^3/ul (0-0.8); ABS Neutrophils 5.3 10^3/ul (1.5-7.7); ABS Nucleated RBC 0 10^3/ul; Eosinophil % 1.5 % (0-6); Hematocrit 47 % (42-52); Hemoglobin 16.4 g/dl (14.0-18.0); Lymphocyte % 21.9 % (25-47); Mean Corpuscular HGB Conc 35 g/dl (31-36); Mean Corpuscular Hemoglobin 33 pg (27-31); Mean Corpuscular Volume 94 fL (80-94); Mean Platelet Volume 8.2 um3 (7.4-10.4); Nucleated Red Blood Cells % 0.1; Platelet Count 214 10^3/ul (150-450); Red Blood Count 5.02 10^6/ul (4.0-5.4); Red Cell Distribution Width 13 % (10.5-15); White Blood Count 7.8 10^3/ul (3.5-10.8)
[2018-01-27 16:22] LABS: Urine Appearance Clear; Urine Blood 1+ (Negative); Urine Color Straw; Urine Ketones Negative (Negative); Urine Protein Negative (Negative); Urine Specific Gravity 1.004 (1.010-1.030); Urine Urobilinogen Negative (Negative)
[2018-01-27 16:28] LABS: EGFR Non-African American 89.4 (>60)
--- NOTE | 2018-01-27 18:14 | ED ---
Shaina Hernandez Gabriel, scribed for Dangelo Astudillo MD on 01/27/18 at 1520 . Psychiatric Complaint - HPI Summary HPI Summary: This patient is a 27 year old M presenting to [facility] c/o increased depression and SI. Pt is on multiple psychiatric medications. Patient reports SI, increased amount of sleep, and weight gain. Hx SI attempts - History Of Current Complaint Chief Complaint: EDMentalHealth Time Seen by Provider: 01/27/18 15:07 Hx Obtained From: Patient Onset/Duration: Still Present Timing: Constant Severity Initially: Moderate Severity Currently: Moderate Character: Depressed Related History: Positive For: Prior Psychiatric Issues Has Suicidal: Reports: Thoughts Has Homicidal: Denies: Thoughts - Allergies/Home Medications Allergies/Adverse Reactions: Allergies Allergy/AdvReac Type Severity Reaction Status Date / Time amoxicillin Allergy Hives Verified 01/27/18 14:46 banana Allergy Unknown Verified 01/27/18 14:46 Reaction Details corn Allergy Unknown Verified 01/27/18 14:46 Reaction Details diphenhydramine Allergy Unknown Verified 01/27/18 14:46 [From Benadryl] Reaction Details hydroxyzine Allergy Altered Verified 01/27/18 14:46 Mental Status kiwi Allergy Anaphylatic Verified 01/27/18 14:46 Shock latex Allergy Unknown Verified 01/27/18 14:46 Reaction Details wheat Allergy Unknown Verified 01/27/18 14:46 Reaction Details Home Medications: Home Medications ARIPiprazole TAB* [Abilify TAB*] 10 mg PO DAILY 01/27/18 [History Confirmed ] Testosterone Cypionate (NF) 200 mg IM Q14D 01/27/18 [History Confirmed 01/27/18] lamoTRIgine TAB(*) [LaMICtal TAB(*)] 37.5 mg PO DAILY 01/27/18 [History Confirmed 01/27/18] PMH/Surg Hx/FS Hx/Imm Hx Endocrine/Hematology History: Denies: Hx Diabetes Cardiovascular History: Denies: Hx Auto Implanted Cardiovert Defib, Hx Hypertension Respiratory History: Denies: Hx Chronic Obstructive Pulmonary Disease (COPD) Sensory History: Denies: Hx Contacts or Glasses, Hx Hearing Aid Opthamlomology History: Denies: Hx Contacts or Glasses Neurological History: Reports: Hx Headaches, Hx Migraine Psychiatric History: Reports: Hx Anxiety, Hx Attention Deficit Hyperactivity Disorder, Hx Eating Disorder - Undiagnosed, started with anorexia then progressed to binging/purging, Hx Depression, Hx Post Traumatic Stress Disorder , Hx Inpatient Treatment, Hx Community Mental Health Tx, Other Psychiatric Issues/Disorders - paranoia Infectious Disease History: No Infectious Disease History: Denies: Traveled Outside the [place] in Last 30 Days - Family History Known Family History: Negative: Cardiac Disease, Hypertension - Social History Alcohol Use: Rare Alcohol Amount: Pt has up to two drinks, twice a month Substance Use Type: Reports: None Substance Use Comment - Amount & Last Used: Pt smokes "less than a bowl," on a daily basis Smoking Status (MU): Never Smoked Tobacco Type: Cigarettes Amount Used/How Often: Pt smokes a maximum of 2 cigarettes per day Have You Smoked in the Last Year: Yes Review of Systems Negative: Fever Psychological: Other - SI Positive: Depressed All Other Systems Reviewed And Are Negative: Yes Physical Exam - Summary Physical Exam Summary: VITAL SIGNS: Reviewed. GENERAL: Patient is a well-developed and nourished female who is lying comfortable in the stretcher. Patient is not in any acute respiratory distress. HEAD AND FACE: No signs of trauma. No ecchymosis, hematomas or skull depressions. No sinus tenderness. EYES: PERRLA, EOMI x 2, No injected conjunctiva, no nystagmus. EARS: Hearing grossly intact. Ear canals and tympanic membranes are within normal limits. MOUTH: Oropharynx within normal limits. NECK: Supple, trachea is midline, no adenopathy, no JVD, no carotid bruit, no c- spine tenderness, neck with full ROM. CHEST: Symmetric, no tenderness at palpation LUNGS: Clear to auscultation bilaterally. No wheezing or crackles. CVS: Regular rate and rhythm, S1 and S2 present, no murmurs or gallops appreciated. ABDOMEN: Soft, non-tender. No signs of distention. No rebound no guarding, and no masses palpated. Bowel sounds are normal. EXTREMITIES: FROM in all major joints, no edema, no cyanosis or clubbing. NEURO: Alert and oriented x 3. No acute neurological deficits. Speech is normal and follows commands. SKIN: Dry and warm PSYCH: Depressed, quiet, and denies any suicidal thoughts or plan. No homicidal thoughts or plan. No signs of psychosis or pressure speech. No tangential speech. Flat affect. tearful Triage Information Reviewed: Yes Vital Signs On Initial Exam: Initial Vitals Temp Pulse Resp BP Pulse Ox 98.4 F 79 16 109/66 97 01/27/18 14:46 01/27/18 14:46 01/27/18 14:46 01/27/18 14:46 01/27/18 14:46 Vital Signs Reviewed: Yes Diagnostics - Vital Signs Vital Signs Temp Pulse Resp BP Pulse Ox 01/27/18 14:46 98.4 F 79 16 109/66 97 - Laboratory Lab Results: Lab Results 01/27/18 01/27/18 01/27/18 Range/Units 15:56 15:56 16:05 WBC 7.8 (3.5-10.8) 10^3/ul RBC 5.02 (4.0-5.4) 10^6/ul Hgb 16.4 (14.0-18.0) g/dl Hct 47 (42-52) % MCV 94 (80-94) fL MCH 33 H (27-31) pg MCHC 35 (31-36) g/dl RDW 13 (10.5-15) % Plt Count 214 (150-450) 10^3/ul MPV 8.2 (7.4-10.4) um3 Neut % (Auto) 68.4 (38-83) % Lymph % (Auto) 21.9 L (25-47) % Harlan % (Auto) 7.4 H (0-7) % Eos % (Auto) 1.5 (0-6) % Baso % (Auto) 0.8 (0-2) % Absolute Neuts (auto) 5.3 (1.5-7.7) 10^3/ul Absolute Lymphs (auto) 1.7 (1.0-4.8) 10^3/ul Absolute Monos (auto) 0.6 (0-0.8) 10^3/ul Absolute Eos (auto) 0.1 (0-0.6) 10^3/ul Absolute Basos (auto) 0.1 (0-0.2) 10^3/ul Absolute Nucleated RBC 0 10^3/ul Nucleated RBC % 0.1 Sodium (139-145) mmol/L Potassium (3.5-5.0) mmol/L Chloride (101-111) mmol/L Carbon Dioxide (22-32) mmol/L Anion Gap (2-11) mmol/L BUN (6-24) mg/dL Creatinine (0.67-1.17) mg/dL Est GFR ( Amer) (>60) Est GFR (Non-Af Amer) (>60) BUN/Creatinine Ratio (8-20) Glucose (70-100) mg/dL Calcium (8.6-10.3) mg/dL Total Bilirubin (0.2-1.0) mg/dL AST (13-39) U/L ALT (7-52) U/L Alkaline Phosphatase (34-104) U/L Total Protein (6.4-8.9) g/dL Albumin (3.2-5.2) g/dL Globulin (2-4) g/dL Albumin/Globulin Ratio (1-3) TSH (0.34-5.60) mcIU/mL Urine Color Straw Urine Appearance Clear Urine pH 7.0 (5-9) Ur Specific [place] 1.004 L (1.010-1.030) Urine Protein Negative (Negative) Urine Ketones Negative (Negative) Urine Blood 1+ A (Negative) Urine Nitrate Negative (Negative) Urine Bilirubin Negative (Negative) Urine Urobilinogen Negative (Negative) Ur Leukocyte Esterase Negative (Negative) Urine WBC (Auto) Trace(0-5/hpf) (Absent) Urine RBC (Auto) Trace(0-2/hpf) (Absent) Ur Squamous Epith Cells Present A (Absent) Urine Bacteria Absent (Absent) Urine Glucose Negative (Negative) Salicylates (<30) mg/dL Urine Opiates Screen None detected (None Detect) Acetaminophen mcg/mL Ur Barbiturates Screen None detected (None Detect) Ur Phencyclidine Scrn None detected (None Detect) Ur Amphetamines Screen None detected (None Detect) U Benzodiazepines Scrn None detected (None Detect) Urine Cocaine Screen None detected (None Detect) U Cannabinoids Screen None detected (None Detect) Serum Alcohol (<10) mg/dL 01/27/18 Range/Units 16:05 WBC (3.5-10.8) 10^3/ul RBC (4.0-5.4) 10^6/ul Hgb (14.0-18.0) g/dl Hct (42-52) % MCV (80-94) fL MCH (27-31) pg MCHC (31-36) g/dl RDW (10.5-15) % Plt Count (150-450) 10^3/ul MPV (7.4-10.4) um3 Neut % (Auto) (38-83) % Lymph % (Auto) (25-47) % Harlan % (Auto) (0-7) % Eos % (Auto) (0-6) % Baso % (Auto) (0-2) % Absolute Neuts (auto) (1.5-7.7) 10^3/ul Absolute Lymphs (auto) (1.0-4.8) 10^3/ul Absolute Monos (auto) (0-0.8) 10^3/ul Absolute Eos (auto) (0-0.6) 10^3/ul Absolute Basos (auto) (0-0.2) 10^3/ul Absolute Nucleated RBC 10^3/ul Nucleated RBC % Sodium 138 L (139-145) mmol/L Potassium 3.9 (3.5-5.0) mmol/L Chloride 101 (101-111) mmol/L Carbon Dioxide 29 (22-32) mmol/L Anion Gap 8 (2-11) mmol/L BUN 8 (6-24) mg/dL Creatinine 0.99 (0.67-1.17) mg/dL Est GFR ( Amer) 114.9 (>60) Est GFR (Non-Af Amer) 89.4 (>60) BUN/Creatinine Ratio 8.1 (8-20) Glucose 97 (70-100) mg/dL Calcium 9.5 (8.6-10.3) mg/dL Total Bilirubin 0.40 (0.2-1.0) mg/dL AST 18 (13-39) U/L ALT 20 (7-52) U/L Alkaline Phosphatase 50 (34-104) U/L Total Protein 6.9 (6.4-8.9) g/dL Albumin 4.3 (3.2-5.2) g/dL Globulin 2.6 (2-4) g/dL Albumin/Globulin Ratio 1.7 (1-3) TSH 1.99 (0.34-5.60) mcIU/mL Urine Color Urine Appearance Urine pH (5-9) Ur Specific [place] (1.010-1.030) Urine Protein (Negative) Urine Ketones (Negative) Urine Blood (Negative) Urine Nitrate (Negative) Urine Bilirubin (Negative) Urine Urobilinogen (Negative) Ur Leukocyte Esterase (Negative) Urine WBC (Auto) (Absent) Urine RBC (Auto) (Absent) Ur Squamous Epith Cells (Absent) Urine Bacteria (Absent) Urine Glucose (Negative) Salicylates < 2.50 (<30) mg/dL Urine Opiates Screen (None Detect) Acetaminophen < 15 mcg/mL Ur Barbiturates Screen (None Detect) Ur Phencyclidine Scrn (None Detect) Ur Amphetamines Screen (None Detect) U Benzodiazepines Scrn (None Detect) Urine Cocaine Screen (None Detect) U Cannabinoids Screen (None Detect) Serum Alcohol < 10 (<10) mg/dL Result Diagrams: 01/27/18 16:05 01/27/18 16:05 Lab Statement: Any lab studies that have been ordered have been reviewed, and results considered in the medical decision making process. Course/Dx - Course Assessment/Plan: This patient is a 27 year old M presenting to [facility] c/o increased depression and SI. Pt is on multiple psychiatric medications. Patient reports SI, increased amount of sleep, and weight gain. Hx SI attempts. Patient is a 27-year-old male who presents to the emergency room with depression and suicidal ideation. The patient has history of depression for which he takes multiple medications. Blood work without any significant abnormality. The patient is medically clear. The patient was awaiting permanent activation. A MHE evaluation was performed by Dr. Pompa. He decided the patient is not actually suicidal and that he may be discharged. - Differential Dx/Clinical Impression Differential Diagnosis/HQI/PQRI: Positive: Anxiety, Depression, Suicidal Ideation Provider Diagnosis: Mood disorder Discharge - Sign-Out/Discharge Documenting (check all that apply): Discharge/Admit/Transfer - Discharge Plan Condition: Stable Disposition: HOME Patient Education Materials: Depression (DC), Anxiety (ED) Referrals: No Primary Care Phys,NOPCP [Primary Care Provider] - - Billing Disposition and Condition Condition: STABLE Disposition: HOME The documentation as recorded by the Shaina watkins Gabriel accurately reflects the service I personally performed and the decisions made by , Dangelo Astudillo MD.
[2018-01-27 21:37] VITALS: BP 113/53
== END 2018-01-27 18:20 | disposition home or self-care (01) ==
LOC: ED 14:42
DX: F39 Unspecified mood [affective] disorder (principal); F17.210 Nicotine dependence, cigarettes, uncomplicated
CPT/HCPCS: 36415; 80053; 80307; 80320; 80329; 81003; 81015; 84443; 85025; 87086; 99283; G0480

== ENCOUNTER 2018-11-30 23:30 | Inpatient (IN) | payer MEDICAID, OTHER ==
--- OUTSIDE RECORDS SUMMARY | 2018-11-30 23:40 | XMS REPORT | Continuity of Care Document ---
:1990 Author Organization [facility] Address [address], [place] [id number] Phone Care Team Providers Name Role Phone Disha Hu NP Unavailable Unavailable Allergies, Adverse Reactions, Alerts Substance Reaction Status kiwi anaphylaxis, vomiting, respiratory Active distress wheat arthralgias Active banana hives, vomiting Active corn Active latex Unknown Active amoxicillin Hives/Skin Rash Active Medications Medication Instructions Dosage Effective Status Comments Dates (start - stop) testosterone inject 0.5 ml (100 - Active cypionate 200 mg) intramuscularly mg/mL once weekly. Code F. intramuscular oil 10ml vial preferred PROZAC (unknown Not Available - Active strength) KLONOPIN (unknown Not Available - Active strength) BD Syringe 1 mL Use as directed to - Active draw up and administer testosterone injections IM once weekly BD Regular Bevel Use as directed to - Active Hessel 20 gauge x draw up testosterone 1" for weekly IM injections BD Regular Bevel UAD to administer - Active Hessel 25 gauge x weekly SQ 5/8" testosterone injections valacyclovir 1 take 1 tab PO qd - Active ! gram tablet Abilify 10 mg - Active tablet Lamictal 150 mg - Active tablet testosterone inject 0.5 ml (100 - No Longer cypionate 200 mg) intramuscularly Active mg/mL once weekly. Code F. intramuscular oil 10ml vial preferred Problems Condition Effective Dates (start - Clinical Status Comments stop) Endocrine disorder, unspecified Transsexualism Human immunodeficiency virus [HIV] - counseling Encounter for screening for human - immunodeficiency virus Human immunodeficiency virus [HIV] - counseling Encntr screen for infections w sexl mode of transmiss Encounter for oth general cnsl and advice on contraception Encounter for screening for human - immunodeficiency virus Transsexualism Endocrine disorder, unspecified Encntr screen for dis of the bld/bld-form org/immun mechnsm Unsp comp following infusion and therapeutic injection, init Endocrine disorder, 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 Encntr screen for dis of the bld/bld-form org/immun mechnsm Urinary tract infection, site not specified Herpesviral vulvovaginitis Dyspareunia not due to a substance or known physiol cond 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 [facility] [place] [address], [place], [facility], [address], [facility], [address], [place], [place], [id number], tel:[phone] [facility] Mayte Gauthier. [facility] [place] [address] , [place], [facility], [address], [facility], [address], [place], [id number], [place] tel:[phone] [facility] Endocrine Linda Referring Parenthood [facility], Ayesha. 620 Provider: [facility] unspecifiedTrans [address], Ayesha Finger sexualism [place], [place], Linda J, [facility], [facility] [address], [place]. [address] tel:[phone], [address], [place], [address] [place], [address]. [id number], tel:[phone] tel:[phone] [facility] [place] 5-[address] Miya. [address], [facility], [place], [facility], [facility] [address], [place]. [address] tel:[phone] , [place], [address] [place], [id number], [place] tel:[phone] [facility] Apr- [facility] [place] 1. [address], [place], [place], [facility], [address] [address] tel:[phone] , [place], [address] [place], [id number], [place] tel:[phone] [facility] [place] 2 [place]. [address], [facility], [place], [facility], [address] [address], [place]. [address] tel:[phone] , [place], [address] [place], [id number], [place] tel:[phone] [facility] Human Dec-2 Guggino Referring [facility] [place] immunodeficiency 8-201 Monisha. Provider: Southern virus [HIV] 7 [address] Monisha Finger counselingEncoun [facility], Guggino F, [facility], [facility] [place], [address], [address] screening [address] [place], , [place], human tel:[phone] [place], immunodeficiency [address] [place], [address]. [id number], virus tel:[phone] tel:[phone] sulting [phone] Provider: NURSE [place] [facility]. [facility] Human Dec-0 White Disha. Referring [facility] [place] immunodeficiency 6-201 [address] Provider: Southern virus [HIV] 7 , [place], [place], [address], White, 620 [facility], [facility] screen for [place]. W Hoh W Hoh infections w St, St, [place], sexl mode of [place], [place], [place], [address]. [id number], er for oth [place] general cnsl and tel:[phone] advice on [phone] contraceptionEnc ounter for screening for human immunodeficiency virus [facility] TranssexualismEn White Disha. Referring [facility] [place] docrine 1 [address] Provider: Eun disorder, [address], [place], [place], [address], [place], [address] [place], [address] r screen for dis [place]. [address] of the , , [place], bld/bld-form [place], [place], [place], [address]. [id number], [facility] [place] tel:[phone] [facility] Unsp comp [facility]en [facility] [place] following 8-201 Myla. [address] infusion and [address], [place] therapeutic [place], [place], [facility], 620 injection, init [address]. W [address] tel:[phone] St, [place], [address] [place], [id number], [place] tel:[phone] [facility] Endocrine Rap[facility] [place] disorder, 0-201 Chanelle. [address], [place] r identity [place], [place], [facility], [facility] [place] [address]. [address] adolescence and tel:[phone] [facility], adulthoodEncntr [address] [place], screen for dis [id number], of the [place] bld/bld-form tel:[phone] org/immun [phone] [facility] Urinary tract [facility] [place] infection, site 0-201 [place]. [address], Finger specifiedHerpesv [place], [place], [facility], [address] [address], [place]. [address] vulvovaginitisDy tel:[phone] St, [place], [place] [address] [place], due to a [id number], substance or [place] known physiol tel:[phone] condGender [phone] identity disorder in adolescence and adulthoodPost-tr aumatic stress disorder, unspecified Family History Family Member Diagnosis Age At Onset Maternal grandmother Diabetes mellitus Father Depression Brother Alcoholism Father Hypertension Father Alcohol abuse Father Anxiety Maternal grandmother Breast cancer Maternal grandfather Alcoholism Mother Anxiety Paternal grandmother Alcoholism Maternal grandmother Hypertension Mother Alcoholism Immunizations Vaccine Date Status Comments HPV, unspecified formulation administered Source: Other Provider HPV, unspecified formulation administered Source: Other Provider Payers Payer name Insurance type Covered libertarian ID Authorization(s) Total Care MARTIN [employer] Options [facility] CI [id number] Social History Type Description Quantity Date Captured Comments Alcohol Use Details Unknown Caffeine Use Details Unknown Tobacco Use Status Unknown Smoking Status Former smoker Sex Male Vital Signs Date / Height Weight BMI Pulse Blood Temperature Respiratory Body Head BMI Pulse Inhaled Time: Rate Pressure Rate Surface Circumference percentile Ox Ox Area No information Chief Complaint And Reason For Visit No information Reason For Referral Reason For Referral No information Plan Of Treatment Date Type Action Status No information History Of Present Illness Encounter Date Complaint History Of Present Illness No information Functional Status Date Functional Assessment No information Medications Administered Medication Instructions Dosage Effective Dates (start - stop) Status Comments No information Instructions Date Instruction Additional Information No information Assessments Type Assessment Date No information Goals Health Concern Goal Type Priority Status Date No information Medical Equipment Description Device [place] Device Identifier Effective Dates (start - stop ) Status No information Mental Status Date Cognitive Assessment No information Health Concerns Observation Date No information Concern Status Date No information
--- NOTE | 2018-11-30 23:47 | ED ---
Psychiatric Complaint - HPI Summary HPI Summary: This patient is a 28 year old M presenting to [facility] with a chief complaint of SI for the past couple days and he has been researching with plans to overdose. He reports experiencing increased depression for the past couple months due to increased stress. Denies previous suicide attempts. Denies PMHx or recent illness. - History Of Current Complaint Chief Complaint: EDSuicidal Time Seen by Provider: 11/30/18 23:47 Hx Obtained From: Patient Onset/Duration: Lasting Days Timing: Constant Character: Depressed Alleviating Factor(s): Nothing Has Suicidal: Reports: Thoughts, With A Plan. Denies: Has Prior Attempt(s) - Allergies/Home Medications Allergies/Adverse Reactions: Allergies Allergy/AdvReac Type Severity Reaction Status Date / Time amoxicillin Allergy Hives Verified 11/30/18 23:35 banana Allergy Unknown Verified 11/30/18 23:35 Reaction Details corn Allergy Unknown Verified 11/30/18 23:35 Reaction Details diphenhydramine Allergy Unknown Verified 11/30/18 23:35 [From Benadryl] Reaction Details hydroxyzine Allergy Altered Verified 11/30/18 23:35 Mental Status kiwi Allergy Anaphylatic Verified 11/30/18 23:35 Shock latex Allergy Unknown Verified 11/30/18 23:35 Reaction Details wheat Allergy Unknown Verified 11/30/18 23:35 Reaction Details Home Medications: Home Medications clonazePAM TAB(*) [Klonopin TAB(*)] 1 mg PO BID PRN MDD 2 12/01/18 [History Confirmed 12/01/18] PMH/Surg Hx/FS Hx/Imm Hx Endocrine/Hematology History: Denies: Hx Diabetes Cardiovascular History: Denies: Hx Auto Implanted Cardiovert Defib, Hx Hypertension Respiratory History: Denies: Hx Chronic Obstructive Pulmonary Disease (COPD) Sensory History: Denies: Hx Contacts or Glasses, Hx Hearing Aid Opthamlomology History: Denies: Hx Contacts or Glasses Neurological History: Reports: Hx Headaches, Hx Migraine Psychiatric History: Reports: Hx Anxiety, Hx Attention Deficit Hyperactivity Disorder, Hx Eating Disorder - Undiagnosed, started with anorexia then progressed to binging/purging, Hx Depression, Hx Post Traumatic Stress Disorder , Hx Inpatient Treatment, Hx Community Mental Health Tx, Other Psychiatric Issues/Disorders - paranoia Denies: Hx of Violent Episodes Against Others - Surgical History Surgery Procedure, Year, and Place: none reported Infectious Disease History: No Infectious Disease History: Denies: Traveled Outside the [place] in Last 30 Days - Family History Known Family History: Negative: Cardiac Disease, Hypertension - Social History Alcohol Use: Rare Alcohol Amount: Pt has up to two drinks, twice a month Substance Use Type: Reports: None, Marijuana Substance Use Comment - Amount & Last Used: Pt smokes "less than a bowl," on a daily basis Smoking Status (MU): Never Smoked Tobacco Type: Cigarettes Amount Used/How Often: Pt smokes a maximum of 2 cigarettes per day Have You Smoked in the Last Year: Yes Review of Systems Constitutional: Negative Positive: Depressed All Other Systems Reviewed And Are Negative: Yes Physical Exam - Summary Physical Exam Summary: Appearance: Well-appearing, Well-nourished, lying in bed comfortably Skin: Warm, dry, no obvious rash Eyes: sclera anicteric, no conjunctival pallor ENT: mucous membranes moist, pharynx appears normal Neck: Supple, nontender Respiratory: Clear to auscultation, no signs of respiratory distress Cardiovascular: Normal S1, S2. No murmurs. Normal distal pulses in tibial and radial bilaterally. Abdomen: Soft, nontender, normal active bowel sounds present Musculoskeletal: Normal, Strength/ROM Intact Neurological: A&Ox3, awake and alert, mentation is normal, speech is fluent and appropriate Psychiatric: affect is somewhat depressed Triage Information Reviewed: Yes Vital Signs On Initial Exam: Initial Vitals Temp Pulse Resp BP Pulse Ox 98.0 F 69 16 116/73 97 11/30/18 23:31 11/30/18 23:31 11/30/18 23:31 11/30/18 23:31 11/30/18 23:31 Vital Signs Reviewed: Yes Diagnostics - Vital Signs Vital Signs Temp Pulse Resp BP Pulse Ox 11/30/18 23:31 98.0 F 69 16 116/73 97 - Laboratory Result Diagrams: 12/01/18 03:47 12/01/18 03:47 Lab Statement: Any lab studies that have been ordered have been reviewed, and results considered in the medical decision making process. - EKG 0357 Cardiac Rate: NL - 81 BPM EKG Rhythm: Sinus Rhythm Summary of EKG Findings: NSR at 81 BPM, P waves, QRS complex, and T waves are within normal limits, T waves and intervals are normal, no ischemic changes. This is a normal EKG. Course/Dx - Course Course Of Treatment: 28 year old M presenting with SI for the past couple days and he has been researching with plans to overdose. Patient is medically cleared for mental health evaluation at 0015. Per psychiatric proposal director, Dr. Pompa recommends this patient be admitted. Due to lack of beds patient will be transferred to a pyschiatric facility. Bloodwork and EKG required for transfer are ordered. - Differential Dx/Clinical Impression Provider Diagnosis: Major depression Discharge - Sign-Out/Discharge Documenting (check all that apply): Patient Departure - transfer Patient Received Moderate/Deep Sedation with Procedure: No - Discharge Plan Condition: Stable Disposition: ADMITTED TO [facility] - Billing Disposition and Condition Condition: STABLE Disposition: Admitted to [facility] - Attestation Statements Document Initiated by Alexei: Yes Documenting Scribe: Shanae Parnell Provider For Whom Alexei is Documenting (Include Credential): Braden Saunders MD Scribe Attestation: IShanae, scribed for Braden Saunders MD on 12/04/18 at 1845. Scribe Documentation Reviewed: Yes Provider Attestation: The documentation as recorded by the Shanae watkins accurately reflects the service I personally performed and the decisions made by Braden walker MD Status of Scribe Document: Viewed
[2018-12-01] MEDS ORDERED: Nicotine Inhaler* 10 MG AMP INH PRN (00:15)
[2018-12-01] MEDS ORDERED: Mouth Piece, Nicotine* 1 EACH CARTRIDGE INH ONE (02:00)
[2018-12-01 03:54] LABS: ABS Basophils 0 10^3/ul (0-0.2); ABS Eosinophils 0.1 10^3/ul (0-0.6); ABS Monocytes 0.7 10^3/ul (0-0.8); ABS Neutrophils 4.4 10^3/ul (1.5-7.7); ABS Nucleated RBC 0 10^3/ul; Eosinophil % 1.6 %; Hematocrit 49 % (36-46); Hemoglobin 16.9 g/dL (14.0-18.0); Lymphocyte % 27.8 %; Mean Corpuscular HGB Conc 35 g/dL (31-36); Mean Corpuscular Hemoglobin 32 pg (27-31); Mean Corpuscular Volume 92 fL (80-94); Nucleated Red Blood Cells % 0.1; Platelet Count 217 10^3/uL (150-450); Red Blood Count 5.27 10^6 /uL (4.18-5.48); Red Cell Distribution Width 13 % (10.5-15); White Blood Count 7.3 10^3/uL (3.5-10.8)
[2018-12-01 04:08] LABS: Urine Appearance Clear; Urine Bacteria Absent (Absent); Urine Bilirubin Negative (Negative); Urine Blood 1+ (Negative); Urine Color Yellow; Urine Glucose Negative (Negative); Urine Ketones Negative (Negative); Urine Nitrite Negative (Negative); Urine Protein Negative (Negative); Urine Red Blood Cell Trace(0-2/hpf) (Absent); Urine Squamous Epithelial Cell Present (Absent); Urine Urobilinogen Negative (Negative); Urine White Blood Cell 1+(6-10/hpf) (Absent)
[2018-12-01 04:12] LABS: ALT 19 U/L (7-52); AST 16 U/L (13-39); Albumin 4.9 g/dL (3.2-5.2); Albumin/Globulin Ratio 2.1 (1-3); Alkaline Phosphatase 72 U/L (34-104); Anion Gap 2 mmol/L (2-11); BUN/Creatinine Ratio 7.6 (8-20); Blood Urea Nitrogen 8 mg/dL (6-24); CO2 Carbon Dioxide 30 mmol/L (22-32); Calcium 9.7 mg/dL (8.6-10.3); Chloride 103 mmol/L (101-111); EGFR African American 100.3 (>60); EGFR Non-African American 82.9 (>60); Globulin 2.3 g/dL (2-4); Glucose 95 mg/dL (70-100); Potassium 3.7 mmol/L (3.5-5.0); Sodium 135 mmol/L (135-145); Total Protein 7.2 g/dL (6.4-8.9)
[2018-12-01 04:20] LABS: Barbiturates Urine Screen None Detected (None Detect); Benzodiazepine Urine Screen None Detected (None Detect); Urine Cannabinoids Screen None Detected (None Detect)
[2018-12-01 04:45] LABS: Acetaminophen < 15 mcg/mL; Alcohol < 10 mg/dL (<10); Salicylate < 2.50 mg/dL (<30)
[2018-12-01 05:00] LABS: TSH (Thyroid Stimulating Horm) 6.65 mcIU/mL (0.34-5.60)
--- NOTE | 2018-12-01 07:42 | ED ---
Progress - Progress Note Progress Note: The patient is a signout from Dr. Saunders at 0700 pending mental health transfer. - Consult/PCP Time Called: 01:04 Course/Dx - Course Course Of Treatment: The pt is a signout from Dr. Saunders at 0700 pending mental health transfer. The pt was stable on this shift and will be transferred to Dr. Dior on shift change pending transfer. - Diagnoses Provider Diagnoses: Suicidal ideation Discharge - Sign-Out/Discharge Documenting (check all that apply): Sign-Out Patient, Receiving Sign-Out Signing out patient TO: Edinson Dior Receiving patient FROM: Braden Saunders - Discharge Plan Disposition: TRANS HIGHER LVL OF CARE FAC Referrals: No Primary Care Phys,NOPCP [Primary Care Provider] - - Billing Disposition and Condition Disposition: Trans Higher Lvl of Care Fac - Attestation Statements Document Initiated by Alexei: Yes Documenting Scribe: Charlette Grissom Provider For Whom Alexei is Documenting (Include Credential): Ariana Lloyd MD. Scribe Attestation: Charlette Hernandez scribed for Ariana Lloyd MD. on 12/01/18 at 1827. Scribe Documentation Reviewed: Yes Provider Attestation: The documentation as recorded by the Charlette watkins accurately reflects the service I personally performed and the decisions made by Apollo walker MD. Status of Scribe Document: Viewed
[2018-12-01] MEDS ORDERED: FLUoxetine CAP* 20 MG PO ONE (16:49)
[2018-12-01] MEDS ORDERED: lamoTRIgine TAB(*) 25 MG PO ONE (16:50)
[2018-12-01] MEDS ORDERED: ARIPiprazole TAB* 15 MG PO ONE (16:50)
[2018-12-01] MEDS: clonazePAM TAB(*) 1 MG PO PRN (17:03)
--- NOTE | 2018-12-02 06:28 | ED ---
Progress - Progress Note Progress Note: The patient is a signout from Dr. Lloyd at 1900 pending mental health transfer. - Consult/PCP Time Called: 01:04 Course/Dx - Course Course Of Treatment: The pt is a signout from Dr. Lloyd at 1900 pending mental health transfer. The pt was stable on this shift and will be transferred to Dr. Astudillo on shift change pending transfer. - Diagnoses Provider Diagnoses: Suicidal ideation Discharge - Sign-Out/Discharge Documenting (check all that apply): Sign-Out Patient Signing out patient TO: Dangelo Astudillo - Upon shift change pending transfer Receiving patient FROM: Ariana Lloyd - upon shift change pending transfer - Discharge Plan Condition: Stable Disposition: TRANS HIGHER LVL OF CARE FAC Referrals: No Primary Care Phys,NOPCP [Primary Care Provider] - - Attestation Statements Document Initiated by Scribe: Yes Documenting Scribe: Lorenza Roque Provider For Whom Scribe is Documenting (Include Credential): Dr. Edinson Dior MD Scribe Attestation: I, Lorenza Roque, scribed for Dr. Edinson Dior MD on 12/02/18 at 0628. Status of Scribe Document: Ready
--- NOTE | 2018-12-02 07:24 | ED ---
Progress - Progress Note Progress Note: This pt was signed out by Dr. Dior at shift change, pending transfer to another psychiatric facility. Dr. Sy, psychiatrist, evaluated the pt and pt remains suicidal. Per Dr. Sy pt will need to be admitted but since there is no bed availability at [facility] pt will need to be transferred. Pt will be signed out to Dr. Dior at shift change pending transfer. Course/Dx - Diagnoses Provider Diagnoses: Depression Discharge - Sign-Out/Discharge Documenting (check all that apply): Sign-Out Patient, Receiving Sign-Out Signing out patient TO: Edinson Dior - pending MH transfer [facility] Received Moderate/Deep Sedation with Procedure: No - Discharge Plan Condition: Stable Disposition: PSYCHIATRIC FACILITY-OTHER Referrals: [facility] PHYSICIAN REFERRAL [Outside] - Billing Disposition and Condition Condition: STABLE Disposition: Psychiatric Facility Other - Attestation Statements Document Initiated by Scribe: Yes Documenting Scribe: Kelsey Davidson Provider For Whom Scribe is Documenting (Include Credential): Dangelo Astudillo MD Scribe Attestation: Kelsey Hernandez scribed for Dangelo Astudillo MD on 12/02/18 at 1855. Scribe Documentation Reviewed: Yes Provider Attestation: The documentation as recorded by the Kelsey watkins accurately reflects the service I personally performed and the decisions made by Dangelo walker MD Status of Scribe Document: Viewed
--- NOTE | 2018-12-02 12:12 | PN ---
ED Flex Patient Progress Note Date of Service: 12/02/18 Subjective: ED Day #2 for this 28 y.o. white, female to male transgendered patient with a history of affective problems who presents with depressed mood and SI. He reports to me this morning that he remains suicidal, thinking of overdosing on medications. Objective: young, white [id number]-[id number] transgender in scrubs; depressed; endorses SI Assessment: Major Depression Plan: No single-room beds available on [facility] (patient is transgendered). Will refer to outside facility. Continue outpatient medications including fluoxetine, aripiprazole and lamotrigine. Vital Signs Temp Pulse Resp BP Pulse Ox 98.8 F 113 18 117/72 99 12/02/18 09:11 12/02/18 09:11 12/02/18 09:11 12/02/18 09:11 12/02/18 09:11 Lab Results - Entire Visit 12/01/18 12/01/18 11/30/18 03:47 03:47 23:55 WBC 7.3 RBC 5.27 Hgb 16.9 Hct 49 H MCV 92 MCH 32 H MCHC 35 RDW 13 Plt Count 217 MPV 8.0 Neut % (Auto) 60.9 Lymph % (Auto) 27.8 [place] % (Auto) 9.2 Eos % (Auto) 1.6 Baso % (Auto) 0.5 Absolute Neuts (auto) 4.4 Absolute Lymphs (auto) 2.0 Absolute Monos (auto) 0.7 Absolute Eos (auto) 0.1 Absolute Basos (auto) 0 Absolute Nucleated RBC 0 Nucleated RBC % 0.1 Sodium 135 Potassium 3.7 Chloride 103 Carbon Dioxide 30 Anion Gap 2 BUN 8 Creatinine 1.05 Est GFR ( Amer) 100.3 Est GFR (Non-Af Amer) 82.9 BUN/Creatinine Ratio 7.6 L Glucose 95 Calcium 9.7 Total Bilirubin 0.70 AST 16 ALT 19 Alkaline Phosphatase 72 Total Protein 7.2 Albumin 4.9 Globulin 2.3 Albumin/Globulin Ratio 2.1 TSH 6.65 H Urine Color Urine Appearance Urine pH Ur Specific [place] Urine Protein Urine Ketones Urine Blood Urine Nitrate Urine Bilirubin Urine Urobilinogen Ur Leukocyte Esterase Urine WBC (Auto) Urine RBC (Auto) Ur Squamous Epith Cells Urine Bacteria Urinalysis Comment Urine Glucose Salicylates < 2.50 Urine Opiates Screen None detected Acetaminophen < 15 Ur Barbiturates Screen None detected Ur Phencyclidine Scrn None detected Ur Amphetamines Screen None detected U Benzodiazepines Scrn None detected Urine Cocaine Screen None detected U Cannabinoids Screen None detected Serum Alcohol < 10 11/30/18 23:55 WBC RBC Hgb Hct MCV MCH MCHC RDW Plt Count MPV Neut % (Auto) Lymph % (Auto) [place] % (Auto) Eos % (Auto) Baso % (Auto) Absolute Neuts (auto) Absolute Lymphs (auto) Absolute Monos (auto) Absolute Eos (auto) Absolute Basos (auto) Absolute Nucleated RBC Nucleated RBC % Sodium Potassium Chloride Carbon Dioxide Anion Gap BUN Creatinine Est GFR ( Amer) Est GFR (Non-Af Amer) BUN/Creatinine Ratio Glucose Calcium Total Bilirubin AST ALT Alkaline Phosphatase Total Protein Albumin Globulin Albumin/Globulin Ratio TSH Urine Color Yellow Urine Appearance Clear Urine pH 6.0 Ur Specific [place] 1.010 Urine Protein Negative Urine Ketones Negative Urine Blood 1+ A Urine Nitrate Negative Urine Bilirubin Negative Urine Urobilinogen Negative Ur Leukocyte Esterase 1+ A Urine WBC (Auto) 1+(6-10/hpf) A Urine RBC (Auto) Trace(0-2/hpf) Ur Squamous Epith Cells Present A Urine Bacteria Absent Urinalysis Comment Urine Glucose Negative Salicylates Urine Opiates Screen Acetaminophen Ur Barbiturates Screen Ur Phencyclidine Scrn Ur Amphetamines Screen U Benzodiazepines Scrn Urine Cocaine Screen U Cannabinoids Screen Serum Alcohol
[2018-12-02] MEDS: ARIPiprazole TAB* 15 MG PO SCH (12:35)
[2018-12-02] MEDS: lamoTRIgine TAB(*) 100 MG PO SCH (12:36)
[2018-12-02] MEDS: FLUoxetine CAP* 20 MG PO SCH (12:43)
--- NOTE | 2018-12-02 17:45 | PN ---
Progress Note - Progress Note Date of Service: 12/02/18 Note: Subjective: Patient denies any complaints or concerns at this time. Medications ordered for patient. Slept well. Objective: VS stable No change to current medications Alert and cooperative and resting comfortably. Appearance: WDW, comfortable, pleasant, alert Skin: Soft dry skin, no lesions. Eyes: VENKATA, EOMI, Conjunctiva pink with no redness or exudates. Neck: Full range of motion. Pulm: Chest symmetrical expansion. No deformities on posterior chest wall. Lungs clear to auscultation and percussion, without adventitious sounds. CV: Heart sounds?RRR, Normal S1 and single S2. No S3, S4, rubs, or murmurs. Musculoskeletal: ROM WNL in all extremities. No deformities noted. Neuro: A&OX3 Psych: Logical, coherent Assessment: Patient has participated in plan with compliance to medications while awaiting assessment. Dx at this time remains major depression. Plan: Continue mediations as prescribed. Will continue to monitor psych behaviors and need for any medication. Will provide a patient to provider assessment within every 24 hours during stay until safe discharge/transfer/ admission plan is established.
--- NOTE | 2018-12-02 19:11 | ED ---
Progress - Progress Note Progress Note: This pt was signed out by Dr. Astudillo at shift change, pending transfer to another psychiatric facility. - Consult/PCP Time Called: 01:04 Course/Dx - Course Course Of Treatment: The pt is a signout from Dr. Dior at 1900 pending mental health transfer. The pt was intended to be a transfer but beds in our facility have since opened up, and the pt will instead be admitted to [facility] under Dr. Soto with a dx of major depression. - Diagnoses Provider Diagnoses: Major depression Discharge - Sign-Out/Discharge Documenting (check all that apply): Patient Departure - Discharge Plan Condition: Stable Disposition: ADMITTED TO [facility] - Attestation Statements Document Initiated by Scribe: Yes Documenting Scribe: Charlette Grissom Provider For Whom Scribe is Documenting (Include Credential): Edinson Dior MD. Scribe Attestation: Charlette Hernandez, scribed for Edinson Dior MD. on 12/03/18 at 0503. Status of Scribe Document: Ready
[2018-12-03] MEDS: lamoTRIgine TAB(*) 100 MG PO SCH (09:32)
[2018-12-03] MEDS: ARIPiprazole TAB* 15 MG PO SCH (09:32)
[2018-12-03] MEDS: FLUoxetine CAP* 20 MG PO SCH (09:32)
[2018-12-03] MEDS ORDERED: Al Hydrox/Mg Hydrox/Simet LIQ* 30 ML UDC PO PRN (09:57)
[2018-12-03] MEDS ORDERED: Acetaminophen TAB* 325 MG PO PRN (09:57)
[2018-12-03] MEDS ORDERED: CMCS: Testosterone Cypionate (NF) 200 MG/ML VIAL IM SCH (16:00)
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
[2018-12-03] MEDS: clonazePAM TAB(*) 1 MG PO PRN (19:54)
[2018-12-04] MEDS: Vitamin THERAPEUTIC TAB PO SCH (08:13)
[2018-12-04] MEDS: ARIPiprazole TAB* 5 MG PO SCH (08:14)
[2018-12-04] MEDS: FLUoxetine CAP* 20 MG PO SCH (08:14)
[2018-12-04] MEDS: lamoTRIgine TAB(*) 100 MG PO SCH (08:32)
[2018-12-04 08:41] LABS: HDL Cholesterol 38.5 mg/dL
[2018-12-04 09:03] LABS: TSH (Thyroid Stimulating Horm) 2.4 mcIU/mL (0.34-5.60)
[2018-12-04 09:05] LABS: Free T4 0.97 ng/dL (0.61-1.12)
--- NOTE | 2018-12-04 16:18 | PN ---
Subjective - Subjective Date of Service: 12/04/18 Service Type: 77965 Hosp care 15 min low complexity Subjective: Patient reports improved mood and denies suicidal ideation. He states he has been contemplating the recent relationship and identifies the unhealthy dynamics. He endorses hopefulness that he will become more independent. Patient reports desire to pursue more physical activity and social interactions. He agrees to meet with his parents and primary team providers tomorrow morning to discuss discharge planning. Objective - General Observations Appearance: Well Groomed Stature: WNL Posture: WNL Eye Contact: Average Behavior/Activity: WNL - Interaction Observations Attitude Towards Examiner: Cooperative Stated Mood: Euthymic Affect: Bright Speech Pattern/Tone: Clear, Appropriate Thought Process: Coherent Perception: WNL Thought Content: WNL Hallucination Type: Denies Delusion Type: Denies - Cognitive Function Orientation: A&O x 4 Level of Consciousness: Alert Cognition: WNL Estimated Intelligence: Normal Insight: WNL Judgment Within Normal Limits: Yes - Medication Compliance Cooperative with Inpatient Medication Regimen: Yes - Group Participation Participates in Group Activities: Yes Assessment - Assessment Merits Inpatient Hospitalization: For Immediate Safety, For Stabilization, For Discharge Planning Inpatient DSM-V Dx: F34.9 Clinical Impression: 28yo transgender female to male who presented to ED with suicidal ideation and plans. He and his significant other broke up after years of unhealthy interdependence. He endorses periods of hypomania with prolonged depressive periods. Plan - Plan Treatment Plan: Name: BRANDON SANCHEZ Birthdate: 1990 [id number] continue acute intensive psychiatric treatment. may decrease to q30min and allow staff pass/computer use per RN. continue current medications. discharge meeting with parents tentative 12/05/18. Continued Medication Management: Continue Outpt Medication Medications: Current Medications Acetaminophen (Tylenol Tab*) 650 mg PO Q4H PRN PRN Reason: PAIN or TEMP > 101 F Al Hydrox/Mg Hydrox/Simethicone (Maalox Plus*) 30 ml PO Q4H PRN PRN Reason: INDIGESTION Aripiprazole (Abilify Tab*) 20 mg PO DAILY JORDAN Last Admin: 12/04/18 08:14 Dose: 20 mg Clonazepam (Klonopin Tab(*)) 1 mg PO BID PRN PRN Reason: ANXIETY Last Admin: 12/03/18 19:54 Dose: 1 mg Fluoxetine HCl (Prozac Cap*) 20 mg PO DAILY [facility] Last Admin: 12/04/18 08:14 Dose: 20 mg Lamotrigine (Lamictal Tab(*)) 150 mg PO DAILY [facility] Last Admin: 12/04/18 08:32 Dose: 150 mg Multivitamins (Theragran Tab*) 1 tab PO DAILY [facility] Last Admin: 12/04/18 08:13 Dose: 1 tab Nicotine (Nicotine Inhaler*) 10 mg INH Q2H PRN PRN Reason: CRAVING Testosterone Cypionate (Testosterone Cypionate (Nf)) 100 mg IM Tu [facility] Last Admin: 12/03/18 16:44 Dose: 100 mg - Discharge Plan Discharge Plan: Inpatient Hospitalization
--- NOTE | 2018-12-04 16:35 | PN ---
BSU: Group Therapy Note - Service Type Service Type: 09761 Group Psychotherapy - Medication Education Group: Patient attended group and presented with flat affect that did not vary with discussion. Although responsive to direct prompts to respond to questions, patient did not engage in spontaneous conversation.
[2018-12-04] MEDS: clonazePAM TAB(*) 1 MG PO PRN (19:20)
[2018-12-05] MEDS: FLUoxetine CAP* 20 MG PO SCH (08:15)
[2018-12-05] MEDS: ARIPiprazole TAB* 5 MG PO SCH (08:15)
[2018-12-05] MEDS: Vitamin THERAPEUTIC TAB PO SCH (08:16)
[2018-12-05] MEDS: lamoTRIgine TAB(*) 100 MG PO SCH (08:16)
[2018-12-05 10:20] VITALS: BP 116/65
--- NOTE | 2018-12-09 10:09 | DS ---
CC: [facility] [place]; [facility]* DISCHARGE SUMMARY: DATE OF ADMISSION: 12/03/18 DATE OF DISCHARGE: 12/05/18 SUPERVISING PSYCHIATRIST: Jordan Sy MD* (dictated by COTY Blankenship) . DISCHARGE DIAGNOSES: 1. Major depressive disorder, rule out bipolar 2 disorder. 2. Gender identity disorder. CONDITION AT THE TIME OF DISCHARGE: Improved. The patient is euthymic with bright affect. He has been safe and in behavioral control. He has been safe on all checks. He denies suicidal ideation. He reports improvement in mood and sleep. He reports desire to be discharged. He and his parents mets with this conventional underwriter and Social Work to discuss treatment and discharge planning. He completed a safety plan. The patient reports desire to return home with his parents in [place]. Temporarily, he will live with them. They were given information about resources in the [place] area for mental health and transgender treatment. The patient is knowledgeable about LGBTQ services. He is agreeable to a referral to [facility]. MENTAL STATUS EXAM: Tod is a 28-year-old transgender female to male, , who appears stated age. He is adequately groomed with full hirsch, short dark hair, and wearing his own clothing. He is alert and oriented x3. Eyes contact is good. Speech is soft, articulate, and spontaneous. Mood is euthymic with full range of affect. No psychomotor activity abnormality present. Thought process is logical, coherent, and goal directed. Thought content is negative for suicidal ideation. He denies HI or . He denies auditory or visual hallucination. There are no perceptual disturbances noted. Insight and judgment are good in that he was willing to be admitted briefly on voluntary status. Fund of knowledge is excellent. INSTRUCTIONS GIVEN TO PATIENT: A. Medications: 1. Aripiprazole 20 mg daily. 2. Clonazepam 1 mg p.o. b.i.d. p.r.n. 1/2 to 1 tab up to twice daily, MDD 2 mg. 3. Fluoxetine 20 mg every other day. 4. Lamotrigine 150 mg p.o. daily. 5. Testosterone 100 mg subcutaneous every week. B. Diet is regular. C. Activity: Ambulation as tolerated. Tobacco cessation is not applicable. Substance use followup is not applicable. There are no pending labs or diagnostic studies. The patient is able to give his own subcutaneous testosterone injections. D. Followup care: The patient was referred to [facility] in [place] for an intake on 12/09/18 at 9 a.m. [facility] with an [facility] appointment on , 12/19/18. HOSPITAL COURSE: Part A: Reason for admission: The patient presented to the emergency department self- referred due to suicidal ideation in the context of relationship ending. HPI: Tod is a 28-year-old transgender female to male, , never , who had a significant other for the past 5 years. He presented to the ED on the evening of 12/01/18 due to thoughts of suicide. He reports he was reaching out to his partner and did not feel cared for. He reports that their relationship had been falling apart and states this is due to Alek being busy with work. Tod states he told his partner, Alek, that he was not doing well and Alek did not respond. It seems as though this escalated into a verbal argument. According to collateral from his parents, from the cluster bore operator on 12/01/18, Tod spontaneously arrived in [place] by bus and called his mother to pick him up. He explained to them that he had been feeling suicidal and researching plans to overdose. He had been to [facility] previously and lives in [place], so they brought him to [facility] that night. Due to full census, efforts were made to transfer the patient to another facility, in the meantime a bed became available and the patient was admitted to our unit on 12/03/18. Part B: Psychiatric treatment rendered: The patient was admitted to adult behavioral services unit on voluntary status. His code status is full. He was placed on 15- minute checks for his safety. He agreed to decrease fluoxetine and increase Abilify at this time due to concerns of bipolar 2 disorder. He was quickly decreased to 30-minute observation and behavioral control. He participated fully in unit programming. The patient was receptive to therapeutic suggestions. We reinstated testosterone as he was previously prescribed. The patient reported improved mood. He endorsed previous relationship was toxic and unhealthy. He reported hopefulness that he will become more independent. As stated above, he is knowledgeable about resources in the [place] area and reports desire to return to his parents who are noted to be supportive and agreed with the discharge plan. On day of discharge, we discussed discontinuation of fluoxetine. Manager Lean suggested to continue with current dose every other day until he has established an outpatient care from there. They can discuss discontinuing this medication and remaining on aripiprazole. The patient denied suicidal ideation at the time of discharge. The patient reported desire to be discharged. He had been safe on all checks and in behavioral control. Due to obligation to treat in least restrictive setting, discharge was agreed upon. The patient and his parents were encouraged to call with any questions or concerns after discharge. MARYCHUY ALVARES NP [id number]/CPS #: [id number] BRAYAN
== END 2018-12-05 14:09 | disposition home or self-care (01) | DRG 751 ==
LOC: ED 23:30 → BSU 12-02 22:21
PROVIDERS: ADMIT Psychiatry & Neurology Psychiatry; ATTEND Psychiatry & Neurology Psychiatry
DX: F33.2 Major depressive disorder, recurrent severe without psychotic features (principal); R45.851 Suicidal ideations; F34.9 Persistent mood [affective] disorder, unspecified; F64.9 Gender identity disorder, unspecified; F42.9 Obsessive-compulsive disorder, unspecified; F84.0 Autistic disorder; F43.10 Post-traumatic stress disorder, unspecified; F90.9 Attention-deficit hyperactivity disorder, unspecified type; F34.1 Dysthymic disorder; F12.90 Cannabis use, unspecified, uncomplicated; Z87.891 Personal history of nicotine dependence; Z79.890 Hormone replacement therapy; Z79.899 Other long term (current) drug therapy; Z88.1 Allergy status to other antibiotic agents; Z91.040 Latex allergy status; Z88.8 Allergy status to other drugs, medicaments and biological substances; Z91.018 Allergy to other foods; Z81.8 Family history of other mental and behavioral disorders; Z81.1 Family history of alcohol abuse and dependence
CPT/HCPCS: 36415; 80053; 80061; 80307; 80320; 80329; 81003; 81015; 83036; 84439; 84443; 85025; 87077; 87086; 90853; 93005; 99222; 99231; 99284; A9270-GY; G0480; J1071

== ENCOUNTER 2019-10-31 12:06 | Inpatient (IN) | payer SELFPAY ==
[2019-10-31 12:27] LABS: ABS Eosinophils 0.2 10^3/ul (0-0.6); ABS Lymphocytes 1.5 10^3/ul (1.0-4.8); ABS Monocytes 0.7 10^3/ul (0-0.8); ABS Neutrophils 2.3 10^3/ul (1.5-7.7); Eosinophil % 4.7 %; Hematocrit 41 % (42-52); Hemoglobin 14.6 g/dL (14.0-18.0); Lymphocyte % 31.1 %; Mean Corpuscular HGB Conc 35 g/dL (31-36); Mean Corpuscular Hemoglobin 34 pg (27-31); Mean Corpuscular Volume 96 fL (80-94); Mean Platelet Volume 7.9 fL (7.4-10.4); Nucleated Red Blood Cells % 0.1; Platelet Count 215 10^3/uL (150-450); Red Blood Count 4.33 10^6 /uL (4.18-5.48); Red Cell Distribution Width 15 % (10-15); White Blood Count 4.7 10^3/uL (3.5-10.8)
[2019-10-31 12:32] LABS: INR 1.02 (0.82-1.09)
[2019-10-31 12:52] LABS: ALT 14 U/L (7-52); AST 18 U/L (13-39); Albumin 4.4 g/dL (3.2-5.2); Albumin/Globulin Ratio 2.1 (1-3); Alkaline Phosphatase 72 U/L (34-104); Anion Gap 4 mmol/L (2-11); BUN/Creatinine Ratio 9.5 (8-20); Blood Urea Nitrogen 8 mg/dL (6-24); CO2 Carbon Dioxide 30 mmol/L (22-32); Calcium 9.3 mg/dL (8.6-10.3); Chloride 102 mmol/L (101-111); EGFR Non-African American 106.6 (>60); Globulin 2.1 g/dL (2-4); Glucose 97 mg/dL (70-100); Potassium 3.9 mmol/L (3.5-5.0); Sodium 136 mmol/L (135-145); Total Protein 6.5 g/dL (6.4-8.9)
[2019-10-31 12:54] LABS: Troponin I 0.19 ng/mL (<0.03)
--- NOTE | 2019-10-31 13:02 | ED ---
Complex/Multi-Sys Presentation - HPI Summary HPI Summary: Patient is a 29 y/o M presenting to [facility] with chief complaint of chest pain. He states that he was in an [employer] earlier today when he experienced onset of right jaw and gum pain. He then experienced onset of chest pain. He states that he felt faint and sat down. Patient reports that his right shoulder then began to onset. He felt fatigued, dizzy, SOB, and more faint. Currently, he states that the pain is mild. He denies numbness/tingling in his extremities. Patient notes that he has been experiencing episodes of abdominal pain for the past month as well. He characterizes the abdominal pain as a cramping sensation and notes that he occasionally has diarrhea with this pain. He has tried GasX, imodium, and tea with no relief in Sx. He has not been evaluated for this Sx. Patient took ibuprofen for his Sx with some relief in pain. No PMHx reported with exception of psych history. Patient states that FMHx of diabetes, blood clots, HLD, HTN noted. Patient notes that he takes testosterone injections and is on valtrex. Patient notes that he missed his most recent hormone dosage. Patient states that he stopped drinking alcohol in April 2019 but still uses marijuana. No other substance usage Hx reported. Home medications and allergies are reviewed. Home Medications Medication Instructions Recorded Confirmed Type FLUoxetine CAP* [Prozac CAP*] 40 mg PO DAILY 10/31/19 10/31/19 History Testosterone Cypionate (NF) 200 mg IM WEEKLY 10/31/19 10/31/19 History ValACYclovir (*) [Valtrex 1 GM(*)] 1 gm PO BID 10/31/19 10/31/19 History lamoTRIgine TAB(*) [Lamictal 200 mg PO DAILY 10/31/19 10/31/19 History TAB(*)] - History Of Current Complaint Chief Complaint: EDGeneral Time Seen by Provider: 10/31/19 12:55 Hx Obtained From: Patient Onset/Duration: Still Present Timing: Constant Location: Pain At: - chest, abdomen, jaw, shoulder Associated Signs And Symptoms: Positive: Dizziness, SOB, Chest Pain, Abdominal Pain, Other - positive - right jaw and right shoulder pain, chest pain, faint, dizzy, fatigued, SOB; negative - numbness/tingling - Allergies/Home Medications Allergies/Adverse Reactions: Allergies Allergy/AdvReac Type Severity Reaction Status Date / Time amoxicillin Allergy Hives Verified 10/31/19 12:34 banana Allergy Unknown Verified 10/31/19 12:34 Reaction Details corn Allergy Unknown Verified 10/31/19 12:34 Reaction Details diphenhydramine Allergy Unknown Verified 10/31/19 12:34 [From Benadryl] Reaction Details hydroxyzine Allergy Altered Verified 10/31/19 12:34 Mental Status kiwi Allergy Anaphylatic Verified 10/31/19 12:34 Shock latex Allergy Unknown Verified 10/31/19 12:34 Reaction Details wheat Allergy Unknown Verified 10/31/19 12:34 Reaction Details Home Medications: Home Medications FLUoxetine CAP* [Prozac CAP*] 40 mg PO DAILY 10/31/19 [History Confirmed ] Testosterone Cypionate (NF) 200 mg IM WEEKLY 10/31/19 [History Confirmed ] ValACYclovir (*) [Valtrex 1 GM(*)] 1 gm PO BID 10/31/19 [History Confirmed 10/31] lamoTRIgine TAB(*) [Lamictal TAB(*)] 200 mg PO DAILY 10/31/19 [History Confirmed 10/31/19] PMH/Surg Hx/FS Hx/Imm Hx Endocrine/Hematology History: Denies: Hx Diabetes Cardiovascular History: Denies: Hx Auto Implanted Cardiovert Defib, Hx Hypertension Respiratory History: Denies: Hx Chronic Obstructive Pulmonary Disease (COPD) Sensory History: Denies: Hx Contacts or Glasses, Hx Hearing Aid Opthamlomology History: Denies: Hx Contacts or Glasses Neurological History: Reports: Hx Headaches, Hx Migraine Psychiatric History: Reports: Hx Anxiety, Hx Attention Deficit Hyperactivity Disorder, Hx Eating Disorder - Undiagnosed, started with anorexia then progressed to binging/purging, Hx Depression, Hx Post Traumatic Stress Disorder , Hx Inpatient Treatment, Hx Community Mental Health Tx, Other Psychiatric Issues/Disorders - paranoia Denies: Hx of Violent Episodes Against Others - Surgical History Surgery Procedure, Year, and Place: none reported Infectious Disease History: No Infectious Disease History: Denies: Traveled Outside the [place] in Last 30 Days - Family History Known Family History: Negative: Cardiac Disease, Hypertension - Social History Alcohol Use: Rare Alcohol Amount: Pt has up to two drinks, twice a month Substance Use Type: Reports: None, Marijuana Substance Use Comment - Amount & Last Used: Pt smokes "less than a bowl," on a daily basis Smoking Status (MU): Never Smoked Tobacco Type: Cigarettes Amount Used/How Often: Pt smokes a maximum of 2 cigarettes per day Have You Smoked in the Last Year: Yes Review of Systems Constitutional: Other - positive - faint Positive: Fatigue ENT: Other - positive - right jaw and gum pain Positive: Chest Pain Positive: Shortness Of Breath Positive: Abdominal Pain Positive: Myalgia - positive - right shoulder pain Neurological/Mental Status: Other - positive - dizziness Negative: Paresthesia, Numbness All Other Systems Reviewed And Are Negative: Yes Physical Exam - Summary Physical Exam Summary: Constitutional: Well-developed, Well-nourished, Alert. (-) Distressed Skin: Warm, Dry; Post Surgical Scars to Chest Wall HENT: Normocephalic; Atraumatic Eyes: Conjunctiva normal Neck: Musculoskeletal ROM normal neck. (-) JVD, (-) Stridor, (-) Nuchal rigidity Cardio: Rhythm regular, rate normal, Heart sounds normal; Intact distal pulses; Radial pulses are 2+ and symmetric. (-) Murmur Pulmonary/Chest wall: Effort normal. (-) Respiratory distress, (-) Wheezes, (-) Rales Abd: Soft, (-) tenderness, (-) Distension, (-) Guarding, (-) Rebound Musculoskeletal: (-) Edema Lymph: (-) Cervical adenopathy Neuro: Alert, Oriented x3 Psych: Mood and affect Normal Triage Information Reviewed: Yes Vital Signs On Initial Exam: Initial Vitals Temp Pulse Resp BP Pulse Ox 97.8 F 60 18 104/58 98 10/31/19 12:21 10/31/19 12:21 10/31/19 12:21 10/31/19 12:21 10/31/19 12:21 Vital Signs Reviewed: Yes Procedures - Sedation Patient Received Moderate/Deep Sedation with Procedure: No Diagnostics - Vital Signs Vital Signs Temp Pulse Resp BP Pulse Ox 10/31/19 12: 97.8 F 60 18 104/58 98 - Laboratory Lab Results: Lab Results 10/31/19 10/31/19 10/31/19 Range/Units 12:19 12:19 12: WBC 4.7 (3.5-10.8) 10^3/uL RBC 4.33 (4.18-5.48) 10^6 /uL Hgb 14.6 (14.0-18.0) g/dL Hct 41 L (42-52) % MCV 96 H (80-94) fL MCH 34 H (27-31) pg MCHC 35 (31-36) g/dL RDW 15 (10-15) % Plt Count 215 (150-450) 10^3/uL MPV 7.9 (7.4-10.4) fL Neut % (Auto) 48.6 % Lymph % (Auto) 31.1 % Valley % (Auto) 14.6 % Eos % (Auto) 4.7 % Baso % (Auto) 1.0 % Absolute Neuts (auto) 2.3 (1.5-7.7) 10^3/ul Absolute Lymphs (auto) 1.5 (1.0-4.8) 10^3/ul Absolute Monos (auto) 0.7 (0-0.8) 10^3/ul Absolute Eos (auto) 0.2 (0-0.6) 10^3/ul Absolute Basos (auto) 0.0 (0-0.2) 10^3/ul Absolute Nucleated RBC 0.0 10^3/ul Nucleated RBC % 0.1 INR (Anticoag Therapy) 1.02 (0.82-1.09) Sodium 136 (135-145) mmol/L Potassium 3.9 (3.5-5.0) mmol/L Chloride 102 (101-111) mmol/L Carbon Dioxide 30 (22-32) mmol/L Anion Gap 4 (2-11) mmol/L BUN 8 (6-24) mg/dL Creatinine 0.84 (0.67-1.17) mg/dL Est GFR ( Amer) 129.0 (>60) Est GFR (Non-Af Amer) 106.6 (>60) BUN/Creatinine Ratio 9.5 (8-20) Glucose 97 (70-100) mg/dL Calcium 9.3 (8.6-10.3) mg/dL Total Bilirubin 0.30 (0.2-1.0) mg/dL AST 18 (13-39) U/L ALT 14 (7-52) U/L Alkaline Phosphatase 72 (34-104) U/L Troponin I 0.19 H* (<0.03) ng/mL Total Protein 6.5 (6.4-8.9) g/dL Albumin 4.4 (3.2-5.2) g/dL Globulin 2.1 (2-4) g/dL Albumin/Globulin Ratio 2.1 (1-3) Result Diagrams: 10/31/19 12:19 10/31/19 12:19 Lab Statement: Any lab studies that have been ordered have been reviewed, and results considered in the medical decision making process. - Radiology CXR Radiology Interpretation Completed By: Radiologist Summary of Radiographic Findings: IMPRESSION: NO ACTIVE CARDIOPULMONARY DISEASE. THIS REPORT WAS REVIEWED BY ED PHYSICIAN. - CT CTA CHEST/THORAX CT Interpretation Completed By: Radiologist Summary of CT Findings: IMPRESSION: 1. NO EVIDENCE FOR PULMONARY EMBOLISM. 2. 3 MM LOW SUSPICION RIGHT LOWER LOBE PULMONARY NODULE. IF THE PATIENT HAS RISK FACTORS. CONSIDER A LOW-DOSE NONCONTRAST CT OF THE CHEST IN ONE YEARS TIME. THIS REPORT WAS REVIEWED BY ED PHYSICIAN. - EKG 1210 Cardiac Rate: NL - NSR with rate of 63 BPM EKG Rhythm: Sinus Rhythm Summary of EKG Findings: NSR with rate of 63 BPM, no STEMI. ED physician has reviewed and interpreted this EKG. 1338 Cardiac Rate: NL - NSR with rate of 65 BPM EKG Rhythm: Sinus Rhythm Summary of EKG Findings: NSR with rate of 65 BPM, no STEMI. ED physician has reviewed and interpreted this EKG. Re-Evaluation - Re-Evaluation First Eval Re-Evaluation Time: 15:58 Comment: Discussed second elevated troponin with the patient. Complex Multi-Symp Course/Dx Course Of Treatment: 29 y/o male (female to male transgender patient on testosterone) p/w CP. Chest Pain DDX: The patient is well appearing, with stable vitals. Given the patient's clinical presentation, highest on differential is ACS vs atypical CP. - EKG sinus, trop elevated to 0.19. Given aspirin. No recent viral infections to suggest pericarditis or myocarditis. Although less likely, differential also includes the following: --Pneumothorax : Equal breath sounds, story inconsistent since gradual onset of symptoms. CXR shows no evidence of pneumothorax. Unlikely. --Cardiac tamponade: The history and physical are not concerning for tamponade. No Pulsus Paradoxus, no tachypnea. Unlikely. --Mediastinitis or esophageal rupture: The history is not consistent, as the patient has had no recent history of significant wretching, instrumentation, or mediastinal surgeries. Unlikely. --Aortic dissection: The patient does not describe the classical tearing chest pain radiating into the back, and imaging does not show evidence of dissection. --PE: CTA w/o PE. unclear cause of symptoms, troponin inc to 0.89 on repeat. Admit to medicine - Diagnoses Provider Diagnoses: Chest pain, Elevated troponin - Physician Notifications Discussed Care Of Patient With: Rell Bustillo Time Discussed With Above Provider: 14:48 Instructed by Provider To: Other - Patient's case was discussed with Dr. Bustillo, Dr. Bustillo accepts for admission - Critical Care Time Critical Care Time: 30-74 min - 30 minutes CCT Discharge ED - Sign-Out/Discharge Documenting (check all that apply): Patient Departure - admit - Discharge Plan Condition: Stable Disposition: ADMITTED TO [facility] - Billing Disposition and Condition Condition: STABLE Disposition: Admitted to [facility] - Attestation Statements Document Initiated by Scribe: Yes Documenting Scribe: JOSÉ AIKEN Provider For Whom Scribe is Documenting (Include Credential): CARMEN MORALES MD Scribe Attestation: I, JOSÉ AIKEN, scribed for CARMEN MORALES MD on 10/31/19 at 1704. Scribe Documentation Reviewed: Yes Provider Attestation: The documentation as recorded by the JOSÉ watkins accurately reflects the service I personally performed and the decisions made by me, CARMEN MORALES MD Status of Scribe Document: Viewed
[2019-10-31] MEDS ORDERED: NS 0.9% 1000 ML** 1,000 ML IV ONE ×3 (13:05→17:48)
[2019-10-31] MEDS ORDERED: Aspirin 81 mg CHEW TAB* 81 MG TAB.CHEW PO ONE (13:05)
--- OUTSIDE RECORDS SUMMARY | 2019-10-31 13:17 | XMS REPORT ---
:1990 Author Organization [facility] Care Team Providers Name Role Phone Meena Cruz Primary Care Physician Unavailable Allergies, Adverse Reactions, Alerts Allergy Code CodeSystem Reaction Severity Criticality Status Start Substance Date Moderate Medications Medication Medication Medication Start Stop Route Dose Status Fill Code CodeSystem Date Date Instructions fluoxetine 826446 RxNorm 2019-05 2019- oral 20 mg 1 completed Take 1 -30 10-21 capsule capsule by once a mouth once a day day for 30 day(s) Lamictal 243851 RxNorm 2019-06- oral 25 mg active for 30 -21 11-20 tablet day(s) fluoxetine 693540 RxNorm 2019-06- oral 40 mg 1 active Take 1 -21 01-19 capsule capsule by once a mouth once a day day for 30 day(s) Problems Problem Name Code CodeSystem Alternate Alternate Start End Status Narrative Code CodeSystem Date Date Recurrent 23573848 SNOMED-CT 2019-0 Active depressive 3-22 disorder, current episode moderate Post-traumat [id number] SNOMED-CT 2018- Active ic stress 1-13 disorder, unspecified Recurrent 51509797 SNOMED-CT 2019-0 Active depressive 3-22 disorder, current episode moderate Recurrent 06083944 SNOMED-CT 2019-0 Active depressive 3-22 disorder, current episode moderate Recurrent 14304630 SNOMED-CT 2019-0 Active depressive 3-22 disorder, current episode moderate Recurrent [id number] SNOMED-CT 2019-0 Active depressive 3-22 disorder, current episode moderate Relevant diagnostic tests/laboratory data Narrative No Information Procedures Procedure Code CodeSystem Target Date of Status Service Device Device Device Name Site Procedure Delivery Code Name UID Location Office or [id number] SNOMED-CT () 2019-06-30 complete Mental other 7 d Health- outpatient [place] visit for [address], [facility], of [facility], established [id number] patient, [id number] which requires at least 2 of these 3 muro components: An expanded problem focused history; An expanded problem focused examination; Medical decision making of low SNOMED-CT () 2019-01-24 complete Mental d Health- [address], [id number] [phone] Psychotherap [id number] SNOMED-CT () 2019-06-16 complete Mental y, 45 04 d Health- minutes with [place] patient [address], [id number] [phone] SNOMED-CT () 2019-09-12 complete Mental d Health- [place], [id number] [phone] Psychotherap [id number] SNOMED-CT () 2019-08-15 complete Mental y, 45 04 d Health- minutes with [place] patient [address], [id number] [phone] Office [place] [id number] SNOMED-CT () 2019-09-05 complete Mental other 6 d Health- outpatient [place] visit for [address], [facility], established [id number] patient, [id number] which requires at least 2 of these 3 muro components: A problem focused history; A problem focused examination; Straightforw giovanna medical decision making. Counselin Office or [id number] SNOMED-CT () 2019-08-01 complete Mental other 7 d Health- outpatient [place] visit for [address], established [id number] patient, [phone] which requires at least 2 of these 3 muro components: An expanded problem focused history; An expanded problem focused examination; Medical decision making of [facility] Psychotherap [id number] SNOMED-CT () 2019-08-01 complete Mental y, 45 04 d Health- minutes with [place] patient [address], [id number] [phone] SNOMED-CT () 2019-05-19 complete Mental d Health- [place], [id number] [id number] Psychiatric [id number] SNOMED-CT () 2019-06-09 complete Mental diagnostic 85 d Health- evaluation [place] with medical [address], [phone] [phone] Psychotherap [id number] SNOMED-CT () 2019-08-01 complete Mental y, 45 04 d Health- minutes with [address], [id number] [phone] SNOMED-CT () 2019-02-13 complete Mental d Health- [address], [id number] [phone] Encounters/Encounter Diagnoses Encounter Name Encounter Diagnosis Diagnosis Diagnosis Date of Service Code Code Name CodeSystem Diagnosis Delivery Location Psychotherapy - [id number] Recurrent SNOMED-CT 2019-10-10 Behavioral Individual 30 depressive Health min disorder, Clinic , , current , episode moderate Vital Signs No Information Social History Element Description Description Start End Code CodeSystem AdditionalInfo Date Date SexAssignedAtBirth Male 1989-0 M AdministrativeGender 8-14 Hospital Discharge Instructions Reason For Referral Medical Equipment FDA Assessments
--- OUTSIDE RECORDS SUMMARY | 2019-10-31 13:17 | XMS REPORT ---
:1990 Author Organization [facility] Care Team Providers Name Role Phone Meena Cruz Primary Care Physician Unavailable Allergies, Adverse Reactions, Alerts Allergy Code CodeSystem Reaction Severity Criticality Status Start Substance Date Moderate Medications Medication Medication Medication Start Stop Route Dose Status Fill Code CodeSystem Date Date Instructions Lamictal 446354 RxNorm 2019-06- oral 25 mg active for 30 -21 11-20 tablet day(s) fluoxetine 725823 RxNorm 2019-05 2019- oral 20 mg 1 completed Take 1 -30 10-21 capsule capsule by once a mouth once a day day for 30 day(s) fluoxetine 609132 RxNorm 2019-06- oral 40 mg 1 active Take 1 -21 01-19 capsule capsule by once a mouth once a day day for 30 day(s) Problems Problem Name Code CodeSystem Alternate Alternate Start End Status Narrative Code CodeSystem Date Date Recurrent 50150125 SNOMED-CT 2019-0 Active depressive 3-22 disorder, current episode moderate Recurrent 64240128 SNOMED-CT 2019-0 Active depressive 3-22 disorder, current episode moderate Post-traumat 73005474 SNOMED-CT 2019- Active ic stress 1-13 disorder, unspecified Recurrent 26616680 SNOMED-CT 2019-0 Active depressive 3-22 disorder, current episode moderate Recurrent 89251175 SNOMED-CT 2019-0 Active depressive 3-22 disorder, current episode moderate Recurrent 96101143 SNOMED-CT 2019-0 Active depressive 3-22 disorder, current episode moderate Relevant diagnostic tests/laboratory data Narrative No Information Procedures Procedure Code CodeSystem Target Date of Status Service Device Device Device Name Site Procedure Delivery Code Name UID Location Psychotherap [id number] SNOMED-CT () 2019-08-15 complete Mental y, 45 04 d Health- minutes with [address], [id number] [phone] Psychotherap [id number] SNOMED-CT () 2019-06-16 complete Mental y, 45 04 d Health- minutes with [place] patient [address], [phone] Psychotherap [id number] SNOMED-CT () 2019-08-01 complete Mental y, 45 04 d Health- minutes with [place] patient [address], [id number] [phone] Psychiatric [id number] SNOMED-CT () 2019-06-09 complete Mental diagnostic 85 d Health- evaluation [place] with [address], [id number] [phone] Office or [id number] SNOMED-CT () 2019-08-01 complete Mental other 7 d Health- outpatient [place] visit for [address], of [facility] [place], established [id number] patient, [phone] which requires at least 2 of these 3 muro components: An expanded problem focused history; An expanded problem focused examination; Medical decision making of [facility] Office or [id number] SNOMED-CT () 2019-06-30 complete Mental other 7 d Health- outpatient [place] visit for [address], [facility], established [id number] patient, [phone] which requires at least 2 of these 3 muro components: An expanded problem focused history; An expanded problem focused examination; Medical decision making of low SNOMED-CT () 2019-02-13 complete Mental d Health- [address], [phone] SNOMED-CT () 2019-05-19 complete Mental d Health- [address], [id number] [phone] SNOMED-CT () 2019-01-24 complete Mental d Health- [address], [id number] [phone] Encounters/Encounter Diagnoses Encounter Encounter Diagnosis Diagnosis Diagnosis Date of Service Name Code Code Name CodeSystem Diagnosis Delivery Location Non-Billable [id number] Recurrent SNOMED-CT 2019-08-29 Behavioral depressive Health disorder, Clinic , , current , episode moderate Vital Signs No Information Social History Element Description Description Start End Code CodeSystem AdditionalInfo Date Date SexAssignedAtBirth Male 1990-0 M AdministrativeGender 8-14 Hospital Discharge Instructions Reason For Referral Medical Equipment FDA Assessments
[2019-10-31] MEDS ORDERED: Iohexol 350* (CONTRAST) 500 ML MDV IV ONE (13:27)
[2019-10-31 14:03] LABS: HCG Pregnancy < 0.60 mIU/mL
[2019-10-31 15:29] LABS: Troponin I 0.89 ng/mL (<0.03)
--- NOTE | 2019-10-31 16:55 | CONSULT ---
Subjective Date of Service: 10/31/19 Interval History: Admission and consult date 10/31/2019 PCP: [facility]. Service: Hospitalist CC: Chest pain Reason for consult: NSTEMI HPI Tod Wakefield is a 29 year old with history as below. Was in usual recent state of health. Daily GI upset last few week resolved with ibuprofen. No viral illnesses. Otherwise in usual state of health. Went to take an Uber today. Started with bilateral jaw discomfort, gum discomfort. Started ambulated and center of chest started hurting and right shoulder associated with dizziness and lightheadedness followed by right hand and arm numbness. This discomfort lasted for a total of less than 90 minutes. Now entirely pain free. Just feels tired currently. No syncope or seizure. No blood transfusions or anemia, PUD or kidney disease. Pmhx: F->M Transgender x 10 years Depression/anxiety with prior psychiatric admission herpes genital dyslipidemia not on a statin Past surgical hx: Breast reduction Meds Testosterone subcutaneous injection once weekly Fluoxetine Lamictal Valtrex Soc Hx: Prior marijuana and alcohol excess No cocaine and similar stimulant meds Tobacco use quit 3 months ago. nursing home relationships ALLERGIES: AMOXICILLIN, DIPHENHYDRAMINE, HYDROXYZINE, and LATEX. FAMILY HISTORY: Notable for maternal grandmother of a pulmonary embolism. Paternal grandmother had diabetes. Father has depression. Mother has alcoholism. Medications Active Medications: Aspirin (Ecotrin Ec Tab*) 325 mg PO DAILY [facility] Atorvastatin Calcium (Lipitor*) 80 mg PO 2100 [facility] Fluoxetine HCl (Prozac Cap*) 40 mg PO DAILY [facility] Heparin Sodium (Porcine) (Heparin Vial(*)) 0 units IV .PER PROTOCOL [facility] Heparin Sodium/Dextrose (Heparin Drip 25,000 Units(*)) 25,000 units in 500 mls @ 0 mls/hr IV PER RATE JORDAN; Protocol Last Admin: 10/31/19 18:23 Dose: 16 mls/hr Sodium Chloride (Ns 0.9% 1000 Ml) 1,000 mls @ 100 mls/hr IV .PER RATE ONE Stop: 11/01/19 03:47 Last Admin: 10/31/19 18:07 Dose: 100 mls/hr Lamotrigine (Lamictal Tab(*)) 200 mg PO DAILY [facility] Metoprolol Tartrate (Lopressor Tab*) 12.5 mg PO BID [facility] Last Admin: 10/31/19 18:29 Dose: 12.5 mg Nitroglycerin (Nitroglycerin Tab 0.4 Mg*) 0.4 mg SL Q5M PRN PRN Reason: ANGINA Valacyclovir HCl (Valtrex 1 Gm(*)) 1 gm PO BID [facility]; Protocol Home Medications: FLUoxetine CAP* [Prozac CAP*] 40 mg PO DAILY 10/31/19 [History Confirmed ] Testosterone Cypionate (NF) 200 mg IM WEEKLY 10/31/19 [History Confirmed ] ValACYclovir (*) [Valtrex 1 GM(*)] 1 gm PO BID 10/31/19 [History Confirmed 10/31] lamoTRIgine TAB(*) [Lamictal TAB(*)] 200 mg PO DAILY 10/31/19 [History Confirmed 10/31/19] Review of Systems - Measurements Intake and Output: Intake and Output Last 24 Hours 10/29/19 10/30/19 10/31/19 11/01/19 06:59 06:59 06:59 06:59 Intake Total 1000 Balance 1000 Weight 145 lb Intake: IV Fluids 1000 - Review of Systems Constitutional Symptoms: Negative: Weight Gain, Weight Loss, Weakness, Fever, Night Sweats Dermatology: Negative: Rash, Skin Lesions HEENT: Negative: Change in Hearing, Vertigo Eyes: Negative: Change in Vision, Double Vision Thyroid: Negative: Palpitations, Weight Loss, Weight Gain Pulmonary: Positive: Shortness of Breath Negative: Cough, Sputum, Hemoptysis Cardiology: Positive: Chest Pain, Shortness of Breath Negative: Swelling of Ankles, Peripheral Vascular Dis, Edema, Faintness, Syncope Gastroenterology: Negative: Blood in Stools, Haematemesis, Melena Genital - Urinary: Negative: Dysuria, Hematuria Musculoskeletal: Negative: Joint Pain, Joint Stiffness Endocrinology: Negative: Obesity, Diabetes, Polydipsia, Polyuria Hematologic/Lymphatic: Negative: Use of Anticoagulant, Use of Antiplatelet Drugs Neurology: Negative: Hx of Stroke\TIA, Hx Seizures Psychiatry: Positive: Depression, Anxiety Allergic/Immunologic: Negative: Hx HIV, Immunocompromise Review of Systems Statement: All other review of systems negative, unless stated above. Objective Vital Signs: Temp Pulse Resp BP Pulse Ox 97.8 F 76 18 109/61 98 10/31/19 12:21 10/31/19 15:37 02/21/20 14:27 10/31/19 15:37 10/31/19 15:37 Appearance: nad, pleasant Ears/Nose/Mouth/Throat: Clear Oropharnyx, Mucous Membranes Moist Neck: NL Appearance and Movements; NL JVP, Trachea Midline Respiratory: Symmetrical Chest Expansion and Respiratory Effort, Clear to Auscultation, - - breast reduction scars noted Cardiovascular: NL Sounds; No Murmurs; No JVD, RRR, No Edema Abdominal: NL Sounds; No Tenderness; No Distention Extremities: No Edema Skin: No Rash or Ulcers Neurological: Alert and Oriented x 3 Laboratory Results: 10/31/19 12:19 10/31/19 12:19 INR (Anticoag Therapy) 1.02 (0.82-1.09) 10/31/19 12:19 Total Bilirubin 0.30 mg/dL (0.2-1.0) 10/31/19 12:19 AST 18 U/L (13-39) 10/31/19 12:19 ALT 14 U/L (7-52) 10/31/19 12:19 Alkaline Phosphatase 72 U/L (34-104) 10/31/19 12:19 Total Protein 6.5 g/dL (6.4-8.9) 10/31/19 12:19 Albumin 4.4 g/dL (3.2-5.2) 10/31/19 12:19 Globulin 2.1 g/dL (2-4) 10/31/19 12:19 Albumin/Globulin Ratio 2.1 (1-3) 10/31/19 12:19 10/31/19 10/31/19 12:19 14:56 Troponin I 0.19 H* 0.89 H* 11/2018 tri 120, tchol 256, ldl 194, hdl 38.5 Diagnostic Imaging: Transthoracic Echocardiogram 10/31/2019 Summary: - Left ventricle: The cavity size is normal. Wall thickness is normal. Systolic function is normal. The estimated ejection fraction is 55-60%. Wall motion is normal; there are no regional wall motion abnormalities. - Right ventricle: The cavity size is normal. Systolic function is normal. - Left atrium: The atrium is normal in size. - Mitral valve: There is mild regurgitation. - Pericardium, extracardiac: There is no significant pericardial effusion. - Pulmonary arteries: Systolic pressure is within the normal range. Exam Date: 10/31/19 CTA CHEST IMPRESSION: 1. NO EVIDENCE FOR PULMONARY EMBOLISM. 2. 3 MM LOW SUSPICION RIGHT LOWER LOBE PULMONARY NODULE. IF THE PATIENT HAS RISK FACTORS CONSIDER A LOW-DOSE NONCONTRAST CT OF THE CHEST IN ONE YEARS TIME. EKG Data: 10/31/2019: NSr 63 bpm, rsr' v1/v2, otherwise normal ekg . No significant change on repeat Assessment/Plan 29 year old admitted with NSTEMI, now pain free without recurrent angina, CHF, arrhythmias or hemodynamic instability. - Start and continue - orders as above - ACS treatment, hold off on second antiplatelet for now - Working diagnosis is at type 1 [place] due to premature atherosclerosis from prior tobacco use and dyslipidemia (possibly in part testosterone supplement related) . We discussed at length that other non-atherosclerotic mechanisms are possible. Diagnostic cardiac catherization followed by revascularization if appropriate recommended. Risks, benefits and alternatives discussed and patient wishes to proceed. If remains stable plan for Sunday11/03/2019
--- NOTE | 2019-10-31 17:29 | ECHO ---
*[facility]* [place] [address] Fax #: [phone] Transthoracic Echocardiogram Patient: Tod Wakefield : 1990 Study Date: 10/31/2019 Age: 29 Gender: M HR: 82 bpm Height: 67 in /170.2 cm BSA: 1.76 m^2 Weight: 144.7 lb /65.8 kg BMI: 22.7 kg/m^2 *Cloth Mercerizing Supervisor: * Zaina Germain [facility] *Referring Physician: * Benjie Gutierres MD *Reading Physician: * Benjie Gutierres MD Indications: Myocardial Infarction (new). History: Depression. Conclusions Summary: - Left ventricle: The cavity size is normal. Wall thickness is normal. Systolic function is normal. The estimated ejection fraction is 55-60%. Wall motion is normal; there are no regional wall motion abnormalities. - Right ventricle: The cavity size is normal. Systolic function is normal. - Left atrium: The atrium is normal in size. - Mitral valve: There is mild regurgitation. - Pericardium, extracardiac: There is no significant pericardial effusion. - Pulmonary arteries: Systolic pressure is within the normal range. Recommendations: None prior for comparison. Study data: Transthoracic echocardiogram. Procedure: Transthoracic echocardiography was performed. Image quality was good. Complete 2D, spectral Doppler, and color flow Doppler. Location: Emergency department. Patient status: Inpatient. Patient room number: ED-04. Rhythm: Normal sinus rhythm. Findings Left ventricle: The cavity size is normal. Wall thickness is normal. Systolic function is normal. The estimated ejection fraction is 55-60%. Wall motion is normal; there are no regional wall motion abnormalities. Left ventricular diastolic function parameters are normal. Right ventricle: The cavity size is normal. Systolic function is normal. Left atrium: The atrium is normal in size. Right atrium: The atrium is normal in size. Mitral valve: The leaflets are normal thickness. There is no evidence of stenosis. There is mild regurgitation. Aortic valve: The valve is trileaflet. The leaflets are normal thickness. There is no evidence of stenosis. There is no significant regurgitation. Tricuspid valve: The leaflets are normal thickness. There is no evidence of stenosis. There is physiologic regurgitation. Pulmonic valve: The leaflets are normal thickness. There is no evidence of stenosis. There is trace regurgitation. Aorta: Aortic root: The aortic root is appears normal. Ascending aorta: The ascending aorta is appears normal. Aortic arch: The aortic arch is appears normal. Pericardium: There is no significant pericardial effusion. Pulmonary arteries: The main pulmonary artery is normal-sized. Systolic pressure is within the normal range. Systemic veins: Inferior vena cava: The vessel is normal in size. There is (>= 50%) respiratory change in the IVC dimension. Measurements Left ventricle Value Ref Aortic valve Value Ref MONICO, LAX 4.7 cm 4.2 - 5.8 Jayant diam, ED 1.9 cm ----- ESD, LAX 3.2 cm 2.5 - 4.0 Peak v, S 1.1 m/sec ----- FS, LAX 31 % 25 - 43 VTI, S 23.5 cm ----- PW, ED, LAX 0.8 cm 0.6 - 1.0 Mean grad, S 3.0 mm Hg ----- FS 31 % 25 - 43 Peak grad, S 5.0 mm Hg ----- Mid-wall FS 17 % LVOT/AV, VTI ratio 0.89 ----- PW, ED 0.8 cm 0.6 - 1.0 E', lat jayant, TDI 13.5 cm/sec >=10.0 Mitral valve Value Re f E/e', lat jayant, 6 Peak E 0.81 m/sec ----- TDI Peak A 0.68 m/sec ----- E', med jayant, TDI 11.3 cm/sec >=7.0 Decel time 208 ms -- --- E/e', med jayant, 7 Peak grad, D 2.6 mm Hg ----- TDI Peak E/A ratio 1.2 ----- E', avg, TDI 12.4 cm/sec E/e', avg, TDI 7 <=14 Pulmonic valve Value Re f Peak v, S 0.86 m/sec ----- LVOT Value Ref Peak grad, S 3.0 mm Hg ----- Peak radha, S 0.93 m/sec VTI, S 21.0 cm Tricuspid valve Value Ref Mean grad, S 2 mm Hg TR peak v 2.12 m/sec <=2.8 Peak RV-RA grad, S 18 mm Hg ----- Ventricular septum Value Ref IVS, ED 0.8 cm 0.6 - 1.0 Aortic root Value Ref Root diam 2.7 cm <3.4 Right ventricle Value Ref MONICO, LAX 2.0 cm Ascending aorta Value Ref MONICO minor ax, A4C 2.8 cm 1.9 - 3.5 AAo AP diam, S 2.6 cm ----- mid Aortic arch Value Ref Left atrium Value Ref Arch diam 2.0 cm ----- AP dim, ES 3.10 cm 3.00 - 4.00 Decending aorta Value Ref ML dim, A4C 4.3 cm Nick peak radha 1.13 m/sec ----- SI dim, A4C 4.4 cm Vol/bsa, ES, 1-p 28 ml/m^2 12 - 37 Inferior vena cava Value Ref A4C Diam 1.4 cm ----- Vol/bsa, ES, A/L 30 ml/m^2 16 - 34 Right atrium Value Ref SI dim, ES 3.9 cm 3.4 - 5.3 ML dim, ES, A4C 3.6 cm 2.6 - 4.4 Estimated RAP 3 mm Hg Legend: (L) and (H) lamonte values outside specified reference range. Prepared and electronically signed by Benjie Gutierres MD 10/31/2019 17:29
[2019-10-31] MEDS ORDERED: Nitroglycerin TAB 0.4 MG* 0.4 MG TAB SL PRN (17:57)
[2019-10-31] MEDS: Heparin DRIP 25,000 UNITS(*) 25,000 UNITS/500 ML BAG IV SCH (18:23)
[2019-10-31] MEDS: Metoprolol Tartrate TAB* 25 MG PO SCH ×2 (18:29→21:10)
[2019-10-31 18:45] LABS: Troponin I 1.16 ng/mL (<0.03)
--- NOTE | 2019-10-31 19:23 | HP ---
CC: [facility] ADMISSION HISTORY AND PHYSICAL: DATE OF ADMISSION: 10/31/19 CHIEF COMPLAINT: Chest pain. HISTORY OF PRESENT ILLNESS: Mr. Wakefield is a 29-year-old female to male transgender individual who wa s riding in a car earlier today when he noted bilateral jaw pain that felt odd to him. It was in his jaw, teeth, and gums. This lasted for some minutes in the car and then he got out of the car and we nt to get Tylenol. While walking to get Tylenol, he developed substernal chest pain, which radiated to his right shoulder. This pain was rated at 3/10 and was associated with shortness of breath. He denies any nausea, vomiting, or diaphoresis. At that point, he felt fatigued and had to sit down and wanted to close his eyes. A friend who he was with drove him to the hospital. The patient denies a ny nausea now, but had nausea last night. He thought this was started by a motion sickness in the ca r ride last night. The patient denies any chest pain now. It resolved in the emergency department. He denies any cocaine use. He had been a cigarette smoker, smoked heavily about 1 pack a day for se veral months prior to quitting 3 months ago. He smoked socially before that. PAST MEDICAL HISTORY: Includes depression with history of suicidal ideation. He has been admitted t o the psychiatric floor of this hospital prior. He also has recurrent genital herpes. PAST SURGICAL HISTORY: Breast reduction at age 19. MEDICATIONS ON ADMISSION: 1. Fluoxetine 40 mg p.o. daily. 2. Lamotrigine 200 mg p.o. daily. 3. Testosterone cypionate 200 mg IM weekly. 4. Valacyclovir 1 g p.o. b.i.d. ALLERGIES: AMOXICILLIN, DIPHENHYDRAMINE, HYDROXYZINE, and LATEX. FAMILY HISTORY: Notable for maternal grandmother of a pulmonary embolism. Paternal grandmother had diabetes. Father has depression. Mother has alcoholism. SOCIAL HISTORY: He works at [employer]. He has a partner. His partner is also a female to male transgender person. He has no children. He quit tobacco 3 months ago. No alcohol u se. No current drug use. He has used marijuana in the past according to Psychiatry notes. REVIEW OF SYSTEMS: The patient denies any fevers, weight loss, or anorexia. The patient denies any palpitations. The patient denies any cough or hemoptysis, but does have shortness of breath earlier today. The patient denies any nausea, vomiting, or abdominal pain. He says that recently in the las t 2 weeks, he has had some abdominal pain that has been relieved by NSAIDs. The patient denies any h ematuria. Neurologically, he states that the medial aspects of both large toes have been numb in the last few weeks. His ENT review of systems is positive for sore throat this morning that seemed to b e improving. Remainder of 14-point review of systems is negative other than mentioned in the HPI. PHYSICAL EXAMINATION GENERAL: He is alert, in no acute distress. VITAL SIGNS: Temperature is 36.6, pulse 76, respirations are 18, blood pressure is 109/61, O2 sat is 96%. HEENT: Head is normocephalic, atraumatic. Sclerae anicteric. Pupils are equal, round, reactive to light and accommodation. Oropharynx is moist. No lesions. NECK: No JVD. No carotid bruits. Thyroid not enlarged. No nodules. LUNGS: Clear to auscultation and percussion bilaterally. HEART: Regular rate and rhythm without murmurs or gallops. ABDOMEN: Soft, nontender. Positive bowel sounds. No hepatosplenomegaly. EXTREMITIES: No peripheral edema. Dorsalis pedis pulses 2+ bilaterally. NEUROLOGIC: Cranial nerves II through XII are intact. Motor strength is 5/5 throughout. Deep tendo n reflexes are 2+ and symmetric. He is alert and oriented x3. DIAGNOSTIC STUDIES/LAB DATA: Sodium 136, potassium 3.9, chloride 102, bicarb 30, BUN 8, creatinine 0.84, glucose is 92, calcium is 9.3. Albumin 4.4. AST 18, ALT 14. HCG is negative. INR is 1.02. White count 4.7, hemoglobin 14.6, hematocrit 41%, platelets are 215. Troponin is 0.19 initially and up to 0.89 on repeat after 3 hours. EKG shows normal sinus rhythm, normal axis. No ST or T wave changes to suggest ischemia. Chest x-ray is within normal limits. CT angiogram of the chest shows no pulmonary emboli. There is a 3 mm right lower lung nodule. He sh ould have followup in 1 year given that he has a history of smoking. ASSESSMENT AND PLAN: Mr. Wakefield is a 29-year-old man with risk factors for heart disease including r ecent smoking history and testosterone exposure, which might raise atherosclerosis risk through eleva steve cholesterol or other mechanisms. The patient will be admitted to the hospital and monitored on t he cardiac floor with telemetry. We will start him on aspirin and heparin to prevent further coronar y artery thrombosis. He appears to be having a small [id number] myocardial infarction. I disc ussed the case with Dr. Gutierres of Cardiology and he will be discussing the case with Interventional C ardiology [facility]. It looks possible that a cardiac [facility] is [facility] or t omorrow. For his depression, we will continue him on his Lamictal and fluoxetine. Code status is full. DVT prophylaxis: He is at low risk given his age, but he will be on IV heparin for coronary artery t hrombosis prevention. [id number]/[facility] #: [id number]
[2019-10-31] MEDS: Atorvastatin* 80 MG TAB PO SCH (21:09)
[2019-10-31] MEDS: ValACYclovir (*) 1 GM TAB PO SCH (21:09)
[2019-10-31 21:27] LABS: Troponin I 1.09 ng/mL (<0.03)
[2019-10-31] MEDS ORDERED: LORazepam TAB(*) 0.5 MG PO ONE (22:53)
[2019-10-31] MEDS ORDERED: Morphine INJ* 2 MG/ML 1 ML SYRINGE (TWO MG - NEW SYRINGE VERSION) IV ONE (23:22)
[2019-11-01 00:55] LABS: Troponin I 0.91 ng/mL (<0.03)
[2019-11-01 07:06] LABS: ABS Eosinophils 0.2 10^3/ul (0-0.6); ABS Lymphocytes 1.6 10^3/ul (1.0-4.8); ABS Monocytes 0.6 10^3/ul (0-0.8); ABS Neutrophils 2.3 10^3/ul (1.5-7.7); Eosinophil % 5.1 %; Hematocrit 42 % (42-52); Hemoglobin 14.5 g/dL (14.0-18.0); Lymphocyte % 33.8 %; Mean Corpuscular HGB Conc 35 g/dL (31-36); Mean Corpuscular Hemoglobin 34 pg (27-31); Mean Corpuscular Volume 97 fL (80-94); Mean Platelet Volume 7.8 fL (7.4-10.4); Nucleated Red Blood Cells % 0.2; Platelet Count 209 10^3/uL (150-450); Red Blood Count 4.27 10^6 /uL (4.18-5.48); Red Cell Distribution Width 15 % (10-15); White Blood Count 4.8 10^3/uL (3.5-10.8)
[2019-11-01 07:19] LABS: BUN/Creatinine Ratio 10.3 (8-20); Calcium 8.9 mg/dL (8.6-10.3); EGFR African American 140.5 (>60); EGFR Non-African American 116.1 (>60); HDL Cholesterol 38.4 mg/dL; Potassium 4.1 mmol/L (3.5-5.0)
[2019-11-01] MEDS: Metoprolol Tartrate TAB* 25 MG PO SCH ×2 (09:19→22:44)
[2019-11-01] MEDS: Aspirin EC TAB* 325 MG PO SCH (09:20)
[2019-11-01] MEDS: FLUoxetine CAP* 20 MG PO SCH (09:20)
[2019-11-01] MEDS: ValACYclovir (*) 1 GM TAB PO SCH ×2 (09:28→22:43)
[2019-11-01] MEDS: lamoTRIgine TAB(*) 100 MG PO SCH (09:28)
--- NOTE | 2019-11-01 10:45 | PN ---
Subjective Date of Service: 11/01/19 Interval History: Patient had chest pain and dyspnea walking to bathroom yesterday evening. This responded to morphine. Patient has walked to again since w/o pain. No palpitations. Family History: Unchanged from Admission Social History: Unchanged from Admission Past Medical History: Unchanged from Admission Objective Active Medications: Aspirin (Ecotrin Ec Tab*) 325 mg PO DAILY [facility] Last Admin: 11/01/19 09:20 Dose: 325 mg Atorvastatin Calcium (Lipitor*) 80 mg PO 2100 [facility] Last Admin: 10/31/19 21:09 Dose: 80 mg Fluoxetine HCl (Prozac Cap*) 40 mg PO DAILY [facility] Last Admin: 11/01/19 09:20 Dose: 40 mg Heparin Sodium (Porcine) (Heparin Vial(*)) 0 units IV .PER PROTOCOL [facility] Heparin Sodium/Dextrose (Heparin Drip 25,000 Units(*)) 25,000 units in 500 mls @ 0 mls/hr IV PER RATE [facility]; Protocol Last Admin: 10/31/19 18:23 Dose: 16 mls/hr Lamotrigine (Lamictal Tab(*)) 200 mg PO DAILY [facility] Last Admin: 11/01/19 09:28 Dose: 200 mg Metoprolol Tartrate (Lopressor Tab*) 12.5 mg PO BID [facility] Last Admin: 11/01/19 09:19 Dose: 12.5 mg Nitroglycerin (Nitroglycerin Tab 0.4 Mg*) 0.4 mg SL Q5M PRN PRN Reason: ANGINA Valacyclovir HCl (Valtrex 1 Gm(*)) 1 gm PO BID [facility]; Protocol Last Admin: 11/01/19 09:28 Dose: 1 gm Vital Signs - 8 hr 11/01/19 11/01/19 11/01/19 03:32 03:35 07:15 Temperature 36.4 C 36.4 C Pulse Rate 64 60 Respiratory 16 16 18 Rate Blood Pressure 95/60 101/63 (mmHg) O2 Sat by Pulse 100 99 Oximetry Oxygen Devices in Use Now: Nasal Cannula Appearance: alert, no distress Ears/Nose/Mouth/Throat: Clear Oropharnyx Neck: NL Appearance and Movements; NL JVP Respiratory: Clear to Auscultation Cardiovascular: NL Sounds; No Murmurs; No JVD, RRR Abdominal: NL Sounds; No Tenderness; No Distention, No Hepatosplenomegaly Extremities: No Edema Skin: No Rash or Ulcers Lines/Tubes/Other Access: Clean, Dry and Intact Peripheral IV Nutrition: Taking PO's Result Diagrams: 11/01/19 06:44 11/01/19 06:44 Additional Lab and Data: Laboratory Tests 10/31/19 10/31/19 10/31/19 14:56 18:12 20:49 APTT Glucose Hemoglobin A1c Troponin I 0.89 H* 1.16 H* 1.09 H* LDL Cholesterol HDL Cholesterol 11/01/19 11/01/19 11/01/19 00:26 00:26 06:44 APTT 70.2 H Glucose 94 Hemoglobin A1c Troponin I 0.91 H* LDL Cholesterol 84 HDL Cholesterol 38.4 11/01/19 11/01/19 06:44 06:44 APTT 65.1 H Glucose Hemoglobin A1c 4.7 Troponin I LDL Cholesterol HDL Cholesterol EKG Data: Repeat EKG: NSR, J point elevation V1 Assess/Plan/Problems-Billing Assessment: 29 year old man with recent tobacco abuse, low HDL high LDL dyslipidemia, here with nonSTEMI. - Patient Problems (1) Non-STEMI (non-ST elevated myocardial infarction) Current Visit: Yes Status: Acute Priority: High Code(s): I21.4 - NON-ST ELEVATION (NSTEMI) MYOCARDIAL INFARCTION SNOMED Code(s): 35407868 Comment: -Concerning that he is having angina w/ minimal exertion -Continue aspirin, heparin -Discussed with Dr. Bocanegra, he is seeing today. -Plan for Cath Sunday if stable -Troponin has peaked. (2) Depression Current Visit: Yes Status: Acute Priority: Medium Code(s): F32.9 - MAJOR DEPRESSIVE DISORDER, SINGLE EPISODE, UNSPECIFIED SNOMED Code(s): 08886766 Comment: -Continue fluoxetine, lamictal (3) [id number] transgender person Current Visit: Yes Status: Acute Priority: Medium Code(s): F64.0 - TRANSSEXUALISM SNOMED Code(s): 826577305 Comment: -If patient elects to continue testosterone, should stay on statin to lower LDL (4) DVT prophylaxis Current Visit: Yes Status: Acute Priority: Medium Code(s): Z29.9 - ENCOUNTER FOR PROPHYLACTIC MEASURES, UNSPECIFIED SNOMED Code(s): 359460716 Comment: -on IV heparin Status and Disposition: inpatient
[2019-11-01] MEDS: Acetaminophen TAB* 325 MG PO PRN ×2 (12:31→17:44)
[2019-11-01] MEDS: Heparin VIAL(*) 5000 UNITS/ML VIAL (FIVE THOUSAND) IV SCH (14:56)
[2019-11-01] MEDS: LORazepam TAB(*) 0.5 MG PO PRN (14:57)
[2019-11-01] MEDS: Atorvastatin* 80 MG TAB PO SCH (22:38)
[2019-11-01] MEDS: Heparin DRIP 25,000 UNITS(*) 25,000 UNITS/500 ML BAG IV SCH (23:39)
[2019-11-02 04:41] LABS: ABS Eosinophils 0.2 10^3/ul (0-0.6); ABS Lymphocytes 1.8 10^3/ul (1.0-4.8); ABS Monocytes 0.7 10^3/ul (0-0.8); ABS Neutrophils 3.6 10^3/ul (1.5-7.7); Eosinophil % 3.8 %; Hematocrit 43 % (42-52); Lymphocyte % 28.2 %; Mean Corpuscular HGB Conc 35 g/dL (31-36); Mean Corpuscular Hemoglobin 34 pg (27-31); Mean Corpuscular Volume 97 fL (80-94); Mean Platelet Volume 7.7 fL (7.4-10.4); Nucleated Red Blood Cells % 0.1; Platelet Count 223 10^3/uL (150-450); Red Blood Count 4.43 10^6 /uL (4.18-5.48); Red Cell Distribution Width 15 % (10-15); White Blood Count 6.4 10^3/uL (3.5-10.8)
[2019-11-02] MEDS: FLUoxetine CAP* 20 MG PO SCH (08:22)
[2019-11-02] MEDS: lamoTRIgine TAB(*) 100 MG PO SCH (08:22)
[2019-11-02] MEDS: Aspirin EC TAB* 325 MG PO SCH (08:22)
[2019-11-02] MEDS: ValACYclovir (*) 1 GM TAB PO SCH ×2 (08:22→21:18)
[2019-11-02] MEDS: Metoprolol Tartrate TAB* 25 MG PO SCH ×2 (08:58→21:23)
[2019-11-02] MEDS: Acetaminophen TAB* 325 MG PO PRN ×2 (10:52→21:33)
[2019-11-02] MEDS: LORazepam TAB(*) 0.5 MG PO PRN ×2 (10:53→23:12)
[2019-11-02] MEDS: Heparin VIAL(*) 5000 UNITS/ML VIAL (FIVE THOUSAND) IV SCH (11:03)
--- NOTE | 2019-11-02 14:51 | PN ---
Subjective Date of Service: 11/02/19 Interval History: Tod feels good today, no complaints. No chest pain, palpitations, shortness of breath, lightheadedness. No events on tele. BP has been a little low, but tolerating the medications without side effects. 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 Fluoxetine HCl (Prozac Cap*) 40 mg PO DAILY [facility] Last Admin: 11/02/19 08:22 Dose: 40 mg Heparin Sodium (Porcine) (Heparin Vial(*)) 0 units IV .PER PROTOCOL [facility] Last Admin: 11/02/19 11:03 Dose: 3,950 units Heparin Sodium/Dextrose (Heparin Drip 25,000 Units(*)) 25,000 units in 500 mls @ 0 mls/hr IV PER RATE [facility]; Protocol Stop: 11/02/19 23:59 Last Admin: 11/01/19 23:39 Dose: 14 mls/hr Lamotrigine (Lamictal Tab(*)) 200 mg PO DAILY [facility] Last Admin: 11/02/19 08:22 Dose: 200 mg Lorazepam (Ativan Tab(*)) 0.5 mg PO Q4H PRN PRN Reason: ANXIETY Last Admin: 11/02/19 10:53 Dose: 0.5 mg Metoprolol Tartrate (Lopressor Tab*) 12.5 mg PO BID [facility] Last Admin: 11/02/19 08:58 Dose: 12.5 mg Nitroglycerin (Nitroglycerin Tab 0.4 Mg*) 0.4 mg SL Q5M PRN PRN Reason: ANGINA Valacyclovir HCl (Valtrex 1 Gm(*)) 1 gm PO BID [facility]; Protocol Last Admin: 11/02/19 08:22 Dose: 1 gm Vital Signs - 8 hr 02/23/20 02/23/20 02/23/20 07:15 07:30 10:53 Temperature 97.7 F Pulse Rate 73 Respiratory 16 16 20 Rate Blood Pressure 96/58 (mmHg) O2 Sat by Pulse 98 Oximetry 11/02/19 11/02/19 11:15 12:33 Temperature 97.5 F Pulse Rate 18 Respiratory 18 Rate Blood Pressure 82/71 98/58 (mmHg) O2 Sat by Pulse 99 Oximetry Oxygen Devices in Use Now: None Appearance: alert, well appearing Eyes: No Scleral Icterus Ears/Nose/Mouth/Throat: NL Teeth, Lips, Gums Neck: NL Appearance and Movements; NL JVP Respiratory: Symmetrical Chest Expansion and Respiratory Effort, Clear to Auscultation Cardiovascular: NL Sounds; No Murmurs; No JVD Abdominal: NL Sounds; No Tenderness; No Distention Lymphatic: No Cervical Adenopathy Extremities: No Edema Skin: No Rash or Ulcers Neurological: Alert and Oriented x 3 Result Diagrams: 11/02/19 04:33 11/01/19 06:44 Additional Lab and Data: Laboratory Tests 10/31/19 10/31/19 10/31/19 14:56 18:12 20:49 APTT Glucose Hemoglobin A1c Troponin I 0.89 H* 1.16 H* 1.09 H* LDL Cholesterol HDL Cholesterol 11/01/19 11/01/19 11/01/19 00:26 00:26 06:44 APTT 70.2 H Glucose 94 Hemoglobin A1c Troponin I 0.91 H* LDL Cholesterol 84 HDL Cholesterol 38.4 11/01/19 11/01/19 06:44 06:44 APTT 65.1 H Glucose Hemoglobin A1c 4.7 Troponin I LDL Cholesterol HDL Cholesterol EKG Data: Repeat EKG: NSR, J point elevation V1 Assess/Plan/Problems-Billing Assessment: 29 year old man with recent tobacco abuse, low HDL high LDL dyslipidemia, here with nonSTEMI. - Patient Problems (1) Non-STEMI (non-ST elevated myocardial infarction) Current Visit: Yes Status: Acute Priority: High Code(s): I21.4 - NON-ST ELEVATION (NSTEMI) MYOCARDIAL INFARCTION SNOMED Code(s): 64702109 Comment: Trop peaked at 1.16 Continue ASA, heparin drip, metoprolol, statin Dr. Bocanegra following; plan for LHC tomorrow (2) DVT prophylaxis Current Visit: Yes Status: Acute Priority: Medium Code(s): Z29.9 - ENCOUNTER FOR PROPHYLACTIC MEASURES, UNSPECIFIED SNOMED Code(s): 004712222 Comment: -on IV heparin (3) Depression Current Visit: Yes Status: Acute Priority: Medium Code(s): F32.9 - MAJOR DEPRESSIVE DISORDER, SINGLE EPISODE, UNSPECIFIED SNOMED Code(s): 39424057 Comment: -Continue fluoxetine, lamictal (4) [id number] transgender person Current Visit: Yes Status: Acute Priority: Medium Code(s): F64.0 - TRANSSEXUALISM SNOMED Code(s): 787163719 Comment: -If patient elects to continue testosterone, should stay on statin to lower LDL Status and Disposition: inpatient. stop heparin drip tonight at midnight, then LHC tomorrow.
[2019-11-02] MEDS: Atorvastatin* 80 MG TAB PO SCH (21:19)
[2019-11-02] MEDS ORDERED: Ketorolac INJ* 15 MG/ML 1 ML VIAL IV PUSH ONE (22:40)
[2019-11-03 06:04] LABS: ABS Eosinophils 0.2 10^3/ul (0-0.6); ABS Lymphocytes 1.8 10^3/ul (1.0-4.8); ABS Monocytes 0.6 10^3/ul (0-0.8); ABS Neutrophils 4.2 10^3/ul (1.5-7.7); Hematocrit 42 % (42-52); Hemoglobin 14.9 g/dL (14.0-18.0); Lymphocyte % 26.1 %; Mean Corpuscular HGB Conc 35 g/dL (31-36); Mean Corpuscular Hemoglobin 34 pg (27-31); Mean Corpuscular Volume 96 fL (80-94); Mean Platelet Volume 7.8 fL (7.4-10.4); Platelet Count 210 10^3/uL (150-450); Red Blood Count 4.41 10^6 /uL (4.18-5.48); Red Cell Distribution Width 15 % (10-15); White Blood Count 6.8 10^3/uL (3.5-10.8)
[2019-11-03] MEDS ORDERED: Diazepam TAB(*) 5 MG PO PRN (08:00)
[2019-11-03] MEDS: Metoprolol Tartrate TAB* 25 MG PO SCH (08:15)
[2019-11-03] MEDS: FLUoxetine CAP* 20 MG PO SCH (08:16)
[2019-11-03] MEDS: lamoTRIgine TAB(*) 100 MG PO SCH (08:16)
[2019-11-03] MEDS: ValACYclovir (*) 1 GM TAB PO SCH (08:16)
[2019-11-03] MEDS: Aspirin EC TAB* 325 MG PO SCH (08:16)
[2019-11-03] MEDS ORDERED: Heparin 2 UNITS/ML IVPREMIX* 2,000 ML IV ONE (08:23)
[2019-11-03] MEDS ORDERED: Heparin(*) 1000 UNIT/ML 10 ML VIAL CATH LAB IV ONE (08:23)
[2019-11-03] MEDS ORDERED: nitroGLYCERIN DRIP* 25,000 MCG/250 ML BTL ONE (08:24)
[2019-11-03] MEDS ORDERED: VERAPAMIL 2.5 MG/ML 2 ML VIAL ** 5 mg/2 ml ONE (08:24)
[2019-11-03] MEDS ORDERED: Lidocaine 1% INJ* 10 MG/ML 30 ML SDV ONE (08:24)
[2019-11-03] MEDS ORDERED: fentaNYL* 50 MCG/ML 2 ML VIAL (100 MCG VIAL) ONE (08:49)
[2019-11-03] MEDS ORDERED: Midazolam* 1 MG/ML 5 ML VIAL (5 MG) ONE (08:49)
[2019-11-03] MEDS ORDERED: Iohexol 350 (CONTRAST) 200 ML MDV IV ONE (08:52)
[2019-11-03] MEDS ORDERED: NS 0.9% 1000 ML** 1,000 ML IV SCH (09:45)
--- NOTE | 2019-11-03 10:04 | CATH ---
"*[facility]* [address] [address] Main: [phone] [email or web address] Cardiac Catheterization Patient: Tod Wakefield : 1990 Study Date: 11/03/2019 Age: 29 Gender: M HR: Height: 67 in /170.2 cm BSA: 1.77 m^2 Weight: 145 lb /65.9 kg BMI: 22.7 kg/m^2 Software Development Coordinator: Charly Bocanegra MD Ordering Physician: Charly Bocanegra MD Referring Physician: Charly Bocanegra MD, Daljit Warner, --- - Right coronary angiography. Summary: Normal Coronary Arteries. Recommendations: Continue medical therapy for presummed Takasubo's syndrome. Labs, prior tests, procedures, and surgery: Blood tests: Troponin I (pre-procedure) of 0.91 ng/ml. Partial thromboplastin time (PTT) of 40.9 sec. Serum potassium (K) of 4.1 mEq/l. Serum sodium (Na) of 138 mEq/l. Serum creatinine (current admission) of 0.78 mg/dl. Blood urea nitrogen of 8 mg/dl. Glucose of 94 mg/dl. Platelet count of 210 th/ul. White blood cell count (WBC) of 0.01 th/ul. Red blood cell count (RBC) of 4410 th/ul. Hematocrit of 42 %. Hemoglobin (pre-procedure) of 14.9 g/dl. Study data: Study status: Cardiac cath: urgent. Location: Catheterization laboratory. Consent: The risks, benefits, and alternatives to the procedure were explained to the patient and/or their healthcare utility sales representative and written informed consent was obtained. All available pre-procedure labs were reviewed. Height: 170.2 cm. 67 in. Weight: 65.9 kg. 145 lb. Body surface area: 1.77 m^2. Body mass index: 22.7 kg/m^2. Procedure: 1. Initial setup. The patient was brought to the laboratory. Surface ECG leads, blood pressure measurements, and pulse oximetric signals were monitored. A baseline seven lead ECG was recorded. A time out was observed per protocol. 2. Skin preparation. The planned puncture sites were prepped and draped in the usual sterile manner. 3. Local anesthesia. 1% lidocaine was administered. 4. Sedation. was administered. 5. Supplemental oxygen. Oxygen, 2 L/min was administered throughout the procedure. 6. Local anesthesia. 1% lidocaine (2 ml) was administered. 7. Right radial artery access. A 6F [place] Slender sheath was advanced into the vessel. 8. Selective right coronary angiography. A 5F AR 1 Impulse catheter was advanced into the right coronary vessel ostium under fluoroscopic guidance. Contrast was injected. Images were obtained in multiple projections. 9. Right radial artery hemostasis. Vessel closure was achieved with a Regular Vasc Band device. Study completion: Minimal estimated blood loss. All catheters inserted during the procedure were removed. There were no apparent complications. Administered medications: VALIUM (Diazepam), 5mg, PO. VERSED (Midazolam), 1mg, IV. Fentanyl, 25mcg, IV. (Radial) Nitroglycerin, 300mcg, intra-arterially. (Radial) Verapamil, 3mg, intra-arterially. (Radial) Heparin, 3,000units, intra-arterially. NaCl 0.9% , infusion , at a rate of 100 ml/hr. Contrast: Omnipaque 350 50 ml (total dose). Omnipaque 350 150 ml (wasted). Radiation: Fluoroscopy dose: 48.6 cGy. Discharge: The patient tolerated the procedure well and was discharged from the lab in stable condition. Findings Coronary arteries: The coronary circulation is right dominant. Left main: Normal, 0% stenosis. LAD: Normal, 0% stenosis. Left circumflex: Normal, 0% stenosis. Right coronary: Normal, 0% stenosis. Hemodynamics: + + + |Stage description |Condition 1 -| + + + |Arterial pressure s/d (m)|83/51 (66) | + + + Prepared and electronically signed by Charly Bocanegra MD 11/03/2019 10:03"
[2019-11-03 14:20] VITALS: BP 96/60
--- NOTE | 2019-11-03 22:55 | DS ---
CC: Dr. Gutierres * DISCHARGE SUMMARY: DATE OF ADMISSION: 10/31/19 DATE OF DISCHARGE: 11/03/19 PRIMARY CARE PROVIDER: [facility]. GROUP HOME MANAGER: Dr. Benjie Gutierres. PRINCIPAL DIAGNOSIS: Elevated troponin with clean coronary arteries. SECONDARY DIAGNOSES: 1. 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 2. Depression. 3. Recurrent genital herpes. DISCHARGE MEDICATIONS: 1. Fluoxetine 40 mg p.o. daily. 2. Lamictal 200 mg p.o. daily. 3. Testosterone cypionate 200 mg IM weekly. 4. Valacyclovir 1 g p.o. b.i.d. 5. Aspirin 81 mg p.o. daily (new). HOSPITAL COURSE: Mr. Wakefield is a 29-year-old female to male transgender individual who has a history of depression, and testosterone use who presented to the emergency room on 10/31/19 with complaints of bilateral jaw pain as well as substernal chest pain. The patient was found to have an elevated troponin of 0.19 on presentation. It peaked at 1.16. The patient was seen in consultation by Dr. Benjie Gutierres from Cardiology. It was recommended to see the patient for a presumed non-ST elevation AL. The patient received aspirin, statin, beta-josh and heparin infusion. On 11/03/19, the patient was taken to the cardiac catheterization lab. The patient reportedly had normal coronary arteries. The etiology behind the rise in troponin is unclear. Transthoracic echocardiogram done on 10/31/19 revealed an EF of 55% to 60% with normal wall motion and no regional wall motion abnormalities. Right ventricular systolic function is normal. There is no significant pericardial effusion. At this time as the patient was found to have clean coronary arteries, it was felt that he no longer needed beta-josh therapy. The patient reportedly has had issues with statin and therefore it was recommended that this be discontinued. His lipid profile that was checked in the hospital revealed a total cholesterol of 149 and an LDL of 84. It was recommended that the patient continue on baby aspirin daily. On the day of discharge, the patient was feeling well. He has had no further chest pain. He has been up and ambulating without difficulty. His vital signs are stable and he is afebrile. Cardiac exam reveals a normal S1 and S2 with a regular rate and rhythm. Lungs are clear bilaterally. Abdomen is soft, nontender, nondistended. The patient moves all four extremities. The patient' s right wrist is in the post-catheterization immobilizer though the balloon is deflated. FOLLOWUP CONCERNS: The patient is being discharged to home today, 11/03/19. ACTIVITY: As per post-cath instructions. CONDITION ON DISCHARGE: Stable. DIET: Heart healthy. The patient should follow up with Dr. Gutierres on 11/12/19 at 4 p.m. I will ask that we get the patient scheduled with [facility] to establish with a primary care provider. TIME SPENT: Thirty five minutes was spent on discharging this patient. [id number]/CPS #: [id number] [email or web address]
== END 2019-11-03 14:39 | disposition home or self-care (01) | DRG 948 ==
LOC: ED 12:06 → MEDTELE 15:57
PROVIDERS: ADMIT Internal Medicine; ATTEND Hospitalist
PROC: B211YZZ Fluoroscopy of Multiple Coronary Arteries using Other Contrast (ICD-10-PCS; principal; 2019-11-03 08:30)
DX: R74.8 Abnormal levels of other serum enzymes (principal); F32.9 Major depressive disorder, single episode, unspecified; A60.00 Herpesviral infection of urogenital system, unspecified; F64.0 Transsexualism; F41.9 Anxiety disorder, unspecified; E78.5 Hyperlipidemia, unspecified; Z87.891 Personal history of nicotine dependence; Z79.890 Hormone replacement therapy; Z79.899 Other long term (current) drug therapy; Z88.8 Allergy status to other drugs, medicaments and biological substances; Z88.1 Allergy status to other antibiotic agents; Z91.040 Latex allergy status; Z81.1 Family history of alcohol abuse and dependence; Z83.3 Family history of diabetes mellitus; Z83.2 Family history of diseases of the blood and blood-forming organs and certain disorders involving the immune mechanism
CPT/HCPCS: 36415; 71045; 71275; 80048; 80053; 80061; 83036; 84484; 84702; 85025; 85610; 85730; 93005; 93306; 93454; 99283; A9270-GY; J1644; J1885; J2250; J2270; J3010; Q9967